=== PATIENT | female | born 1945 | race Caucasian/White ===

== ENCOUNTER 2019-05-25 16:32 | Emergency (ER) | payer MEDICARE, BC, SELFPAY ==
--- NOTE | ~2019-05-25 | XR_ITS ---
EXAMINATION: XR hand LT min 3V DATE: 05/25/2019 17:32 INDICATION: Pain at the fifth metacarpal post fall TECHNIQUE: Posteroanterior, oblique and lateral views of the left hand were obtained. COMPARISON: None. FINDINGS: One cortical width dorsal displacement and mild palmar angulation of Articular spiral fracture of the left fifth metacarpal diaphysis. Alignment is otherwise normal. No o ther acute fractures identified. Joint spaces are relatively preserved. IMPRESSION: 1. Minimally displaced and minimally angulated spiral fracture of the left fifth metacarpal diaphysis . Reviewed, dictated and finalized at location A. RPILLAR OPERATOR IMPRESSION: 1. Minimally displaced and minimally angulated spiral fracture of the left fift h metacarpal diaphysis.
[2019-05-25 16:37] VITALS: BP 133/108; PULSE 79; RESP 18; TEMP 36.6; O2SAT 98
--- NOTE | 2019-05-25 18:38 | ED.FALL ---
HPI - Fall General Chief Complaint: Fall Stated Complaint: fall/right hand pain Time Seen by Provider: 05/25/19 16:43 Source: patient Mode of arrival: ambulatory Limitations: no limitations History of Present Illness HPI Narrative: Patient presents with CC of swelling to left cheek, left 5th digit, and right knee after missing a small step transition and falling. Patient denies LOC. She denies headache, nausea, vomiting, changes in vision or hearing, or bleeding from her orifices. She denies being on blood thinners. Patient states she was able to get up and ambulate without issue. She denies any neurological deficits. Patient reports decreased ROM due to swelling and discomfort to 5th digit. Related Data Allergies Allergy/AdvReac Type Severity Reaction Status Date / Time iodine Allergy Unknown Verified 06/25/13 07:36 Review of Systems Review of Systems: Narrative: CONSTITUTIONAL: Denies fever, chills, or sweats. EYES: Denies visual changes, redness, or discharge. ENT: Denies rhinorrhea, congestion, sore throat, or otalgia. CARDIOVASCULAR: Denies chest pain, palpitations, or edema. RESPIRATORY: Denies cough or dyspnea. GASTROINTESTINAL: Denies abdominal pain, nausea, vomiting, or diarrhea. GENITOURINARY: Denies dysuria or hematuria. SKIN: Denies rash or itching. MUSCULOSKELETAL: Reports joint pain denies back pain, or myalgia. NEUROLOGIC: Denies headache, numbness, dizziness, or weakness. PSYCHIATRIC: Denies anxiety or depression. PMFSH Social History Social History Gender identity (if verbalized by the patient): Female Exam Narrative: Exam Narrative: Exam Narrative: GENERAL: Well-appearing, well-nourished, and in no acute distress. HEAD: No hematoma. No divets palpated. Mild swelling to left check. mild tenderness to palaption. EYES: PERRLA and EOMI. ENT: Nares clear, no rhinorrhea or epistaxis. Mucous membranes moist. Oropharynx without tonsillar hypertrophy exudate or other lesions. Bilateral TMs pearly constantino nonbulging NECK: Supple. No adenopathy or masses. No JVD noted CHEST: Clear to auscultation. No respiratory distress. No wheezes rales or rhonchi HEART: Regular rate and rhythm. Normal peripheral pulses. EXTREMITIES: Swelling and ecchymosis noted to distal left fifth digit. Abrasion noted to the anterior aspect of right knee without bony tenderness or loss of range of motion. SKIN: Abrasion and ecchymosis as noted in extremity exam. Warm, dry, no rash. NEURO: No focal deficits. Alert and oriented x3. PSYCH: Normal mood and affect. Course Vital Signs Vital signs: Vital Signs Temperature 97.9 F 05/25/19 16:37 Pulse Rate 79 05/25/19 16:37 Respiratory Rate 18 05/25/19 16:37 Blood Pressure 133/108 H 05/25/19 16:37 Pulse Oximetry 98 05/25/19 16:37 Temperature 97.9 F 05/25/19 16:37 Pulse Rate 78 05/25/19 18:59 Respiratory Rate 16 05/25/19 18:59 Blood Pressure 118/75 05/25/19 18:59 Pulse Oximetry 100 05/25/19 18:59 Procedures Orthopedic Splinting/Casting Injury #1: Side: left Upper Extremity Injury Location: finger (Fifth digit) Upper Extremity Immobilizer: finger (other) Pre-Formed: metal foam finger splint Pre-Procedure Neuro Vascular Exam: normal Post-Procedure Neuro Vascular Exam: normal MDM - Fall MDM Narrative Medical decision making narrative: Patient refused CT imaging of her head and maxillofacial bones. Patient denies being on blood thinners. Patient denies x-ray imaging of her knees. Patient denies any other areas of discomfort and is only agreeable to x-ray imaging of her left hand. Informed patient of fracture to left fifth digit. Patient agreement with splinting and will follow-up with hand specialist. Patient would like to be referred to Dr. Damian as she has seen him in the past. Patient denies any other questions or concerns. Patient denies any additional areas of concern that she would like evaluated prior to
[2019-05-25 18:59] VITALS: BP 118/75; PULSE 78; RESP 16; O2SAT 100
--- NOTE | 2019-05-29 10:21 | PC.NURSE ---
LATE ENTRY This note is being entered to document information to the patient's record. The following information was omitted on [05/25/2019], by [effie]. Verbal order per YOMI Hernandez for metal finger splint, splint placed prior to departure.
== END 2019-05-25 19:00 | disposition home or self-care (01) ==
PROVIDERS: Emergency Provider Emergency Medicine; PCP Internal Medicine
DX: S62.397A Other fracture of fifth metacarpal bone, left hand, initial encounter for closed fracture (principal); W10.9XXA Fall (on) (from) unspecified stairs and steps, initial encounter
CPT/HCPCS: 29130; 73130; 99284

== ENCOUNTER 2019-07-27 19:30 | Emergency (ER) | payer MEDICARE, BC, SELFPAY ==
--- NOTE | ~2019-07-27 | CT_ITS ---
EXAMINATION: CT brain wo con DATE: 07/27/2019 20:48 INDICATION: Status post fall. Head injury. TECHNIQUE: Computed tomography (CT) of the head was performed without intravenous contrast. The dose- length product was 529.67 mGy-cm. The mA was adjusted according to patient size. Iterative reconstruc tion technique was employed. COMPARISON: None FINDINGS: No acute intracranial hemorrhage, infarction, mass or mass effect. Mild atrophy. There are scattered mild periventricular and subcortical white matter changes, most likely related to small ves brenda ischemic disease (microangiopathy). Basilar cisterns are patent. Normal constantino-white differentiatio n. Paranasal sinuses and mastoids are pneumatized. No depressed skull fractures. IMPRESSION: 1. No acute intracranial abnormality. 2: Chronic age-related findings. Reviewed, dictated and finalized at location A.
--- NOTE | ~2019-07-27 | XR_ITS ---
XR shoulder LT min 2V, XR humerus LT 07/27/2019 21:01 Indication: Left shoulder pain after fall. Limited range of motion. Procedure: 4 views left shoulder and 2 views left humerus Comparison: No prior studies for comparison. Findings: There is a comminuted left humeral head/neck fracture with pseudosubluxation inferiorly. Ac romioclavicular joint intact. No other fracture identified. Impression: 1: Mildly displaced, comminuted fracture left humeral neck/head with inferior pseudosubluxation. Reviewed, dictated and finalized at location A. Impression: 1: Mildly displaced, comminuted fracture left humeral neck/head with inferior p seudosubluxation. Impression: 1: Mildly displaced, comminuted fracture left humeral neck/head with inferior p seudosubluxation.
--- NOTE | ~2019-07-27 | CT_ITS ---
EXAMINATION: CT cervical spine wo con DATE: 07/27/2019 20:48 INDICATION: Status post fall. Neck pain. TECHNIQUE: Computed tomography (CT) of the cervical spine was performed without intravenous contrast. The dose-length product was 183 mGy-cm. Automated exposure control and iterative reconstruction technique were employed. COMPARISON: None FINDINGS: No acute fracture, subluxation or dislocation. Odontoid process within normal limits. Crani overtebral junction is normal. There are mild degenerative changes at multiple levels characterized b y mild disc narrowing at C4-5, C5-6 and C6-7. There is mild multilevel uncinate and facet hypertrophy . Lung apices are normal. No significant paraspinal soft tissue abnormality. Lung apices are normal. IMPRESSION: 1. No acute abnormality of the cervical spine. Reviewed, dictated and finalized at location A.
[2019-07-27 19:33] VITALS: BP 147/69; PULSE 86; RESP 16; TEMP 36.4; O2SAT 95
--- NOTE | 2019-07-27 20:30 | ED.UPPEXIN ---
HPI - Extremity Injury (Upper) General Chief Complaint: Extremity Injury, Upper Stated Complaint: fall, hit head, left arm injury Time Seen by Provider: 07/27/19 20:20 Source: patient Mode of arrival: ambulatory Limitations: no limitations History of Present Illness HPI narrative: Patient is a 73-year-old female who presents to the emergency department with complaint of left upper arm/shoulder injury. Patient states she was going out her door to her patio and tripped on the door frame. Patient landed on her left upper arm. She did strike the right side of her forehead on the iron railing around the patio. Patient denies loss of consciousness or headache. She does report some stiffness in her neck. She complains of pain to the left upper arm and shoulder that is worse with any attempted movement. She placed a sling and cold pack prior to arrival. Injury occurred between 630 and 7 PM. Patient reports minor abrasions to the right hand and 1 of her knees. Patient does not take any blood thinners. complaint: injury to: left, shoulder and arm Onset (ago): hour(s) Other injuries: head Place: home Relieving factors: cold therapy and immobilization Exacerbating factors: movement of extremity Associated symptoms: neck pain (stiff) Treatments prior to arrival: cold therapy and other (Sling) Related Data Allergies Allergy/AdvReac Type Severity Reaction Status Date / Time iodine Allergy Severe Swelling Verified 07/27/19 19:44 of Lip/Tongue/Throat Sulfa (Sulfonamide Allergy Unknown Verified 07/27/19 19:44 Antibiotics) Review of Systems Review of Systems: All systems reviewed & are unremarkable except as noted in HPI and below PMFSH Past Medical History Medical History (Updated 07/27/19 @ 23:16 by Samantha Orellana MD) Diabetes mellitus Dyslipidemia Hypertension Hypothyroidism Surgical History Surgical History (Updated 07/27/19 @ 20:34 by Samantha Orellana MD) History of cholecystectomy History of colon resection History of esophagogastroduodenoscopy (EGD) History of hysterectomy History of tonsillectomy Social History Social History (Updated 07/27/19 @ 20:35 by Samantha Orellana MD) Smoking status: Never smoker Gender identity (if verbalized by the patient): Female Exam Const: General: cooperative, no acute distress and alert Nutritional Appearance: well nourished Orientation/consciousness: patient oriented x3 Limitations: no limitations HENMT: Head images: 1. Contusion/ecchymosis with mild to moderate swelling Eyes: Conjunctivae: conjunctivae normal Pupils: Equal, round and reactive pupils present EOM: EOMs intact bilaterally Resp: Effort & Inspection: normal respiratory effort Auscultation: clear to auscultation bilaterally Cardio: Rate: regular rate Rhythm: regular rhythm GI: GI Palp: Yes Soft to palpation and No Tenderness to palpation present (GI) Auscultation: normal bowel sounds Back/Spine/Pelvis: Cervical Spine: cervical ROM normal, cervical muscular tenderness and Cervical spine tenderness Skin: General skin exam: normal color Neuro: General: patient oriented x3 Cognition (Neuro): normal cognition Speech: normal speech Extrem: General: normal to inspection, full ROM and no clubbing, cyanosis or edema Shoulder/upper arm images: 1. Diffuse tenderness without overt deformity Psych: Mental Status: mental status grossly normal Affect: normal affect Attitude: cooperative Course Course Emergency Course: Patient reports improvement in pain after acetaminophen. Patient given hydrocodone prior to discharge and will be prescribed pain medication to take on an as-needed basis. Patient placed in shoulder immobilizer and will be referred to orthopedic surgery for follow-up care. Vital Signs Vital signs: Vital Signs Temperature 97.6 F 07/27/19 19:33 Pulse Rate 86 07/27/19 19:33 Respiratory Rate 16 07/27/19 19:33 Blood Pressure 147/69 H
[2019-07-27 23:19] VITALS: BP 118/73; PULSE 95; RESP 18; O2SAT 96
== END 2019-07-27 23:35 | disposition home or self-care (01) ==
PROVIDERS: Emergency Provider Emergency Medicine; PCP Internal Medicine
DX: S42.292A Other displaced fracture of upper end of left humerus, initial encounter for closed fracture (principal); S09.90XA Unspecified injury of head, initial encounter; S16.1XXA Strain of muscle, fascia and tendon at neck level, initial encounter; E11.9 Type 2 diabetes mellitus without complications; E78.5 Hyperlipidemia, unspecified; I10 Essential (primary) hypertension; E03.9 Hypothyroidism, unspecified; W01.198A Fall on same level from slipping, tripping and stumbling with subsequent striking against other object, initial encounter
CPT/HCPCS: 70450; 72125; 73030; 73060; 96365; 99284; A9270; J0131

== ENCOUNTER 2019-07-30 17:16 | Outpatient (CLI) | payer MEDICARE, BC, SELFPAY ==
--- NOTE | ~2019-07-30 | CT_ITS ---
EXAMINATION: CT shoulder LT wo con EXAM DATE: 07/30/2019 17:48 INDICATION: Left shoulder pain, fracture. TECHNIQUE: Spiral CT left shoulder was performed without contrast. Axial, coronal and sagittal imag es were reviewed. The dose-length product (DLP) for this examination was 459.33 mGy-cm. The exposur e was tailored according to patient size (auto mA exposure control), and iterative reconstruction ( IR) was used as additional dose reduction technique. Correlation is made to x-ray same date. FINDINGS: There is acute comminuted fracture of the left humeral head/neck with distraction of fractu re fragments. There is inferior subluxation of the humeral head, fragments, and probably some impacti on into the inferior aspect of glenoid rim, but the glenoid appears intact, no other fractures identi fied. IMPRESSION: Acute comminuted inferiorly subluxed left humeral head/neck fracture, probably some impac tion into the glenoid rim. Reviewed, dictated and finalized at location A. IMPRESSION: Acute comminuted inferiorly subluxed left humeral head/neck fractur e, probably some impaction into the glenoid rim.
== END 2019-07-30 17:17 | disposition home or self-care (01) ==
PROVIDERS: PCP Internal Medicine; Visit Provider Orthopaedic Surgery
DX: M25.512 Pain in left shoulder (principal); S42.295A Other nondisplaced fracture of upper end of left humerus, initial encounter for closed fracture
CPT/HCPCS: 73200

== ENCOUNTER 2021-12-09 19:04 | Emergency (ER) | payer MEDICARE, BC, SELFPAY ==
[2021-12-09 19:13] VITALS: BP 140/59; PULSE 72; RESP 18; TEMP 36.4; O2SAT 98
--- NOTE | 2021-12-09 19:58 | ED.WOUNDLAC ---
HPI - Wound/Laceration General Chief Complaint: Wound/Laceration Stated Complaint: left leg non healing wound Time Seen by Provider: 12/09/21 19:45 Source: patient, RN notes reviewed and old records reviewed Mode of arrival: ambulatory Limitations: no limitations History of Present Illness HPI narrative: 76 year old female who presents to express care with complaints of 3cm X 5cm red area to the back of her left posterior knee, with irregular shaped red purplish area which has grown in size with complaints of itching. Patient concerned due to history of cellulitis. Patient also has 1cm circular area to the right lower leg medially that is from a witnessed bug bite. Patient denies any fevers, chills or sweats or any signs of illness. Onset (ago): day(s) (3 days increased size) Location: other (bilateral lower extremities) Related Data Home Medications Medication Instructions Recorded Confirmed cyanocobalamin (vitamin B-12) mcg 12/09/21 1,000 mcg/mL injection solution dapagliflozin 10 mg tablet mg 12/09/21 (Farxiga) dulaglutide 1.5 mg/0.5 mL mg subcut 12/09/21 subcutaneous pen injector ([facility]) glimepiride 2 mg tablet mg 12/09/21 levothyroxine 75 mcg tablet mcg 12/09/21 lisinopril 5 mg tablet mg 12/09/21 magnesium oxide 400 mg (241.3 mg mg 12/09/21 magnesium) tablet metformin 500 mg tablet,extended mg PO 12/09/21 release 24 hr metoprolol succinate 25 mg mg PO 12/09/21 tablet,extended release 24 hr pravastatin 80 mg tablet mg 12/09/21 Allergies Allergy/AdvReac Type Severity Reaction Status Date / Time iodine Allergy Severe Swelling Verified 12/09/21 19:17 of Lip/Tongue/Throat Sulfa (Sulfonamide Allergy Unknown Verified 12/09/21 19:17 Antibiotics) Review of Systems Review of Systems: CONSTITUTIONAL: Denies fever, chills, or sweats. EYES: Denies visual changes, redness, or discharge. ENT: Denies rhinorrhea, congestion, sore throat, or otalgia. CARDIOVASCULAR: Denies chest pain, palpitations, or edema. RESPIRATORY: Denies cough or dyspnea. GASTROINTESTINAL: Denies abdominal pain, nausea, vomiting, or diarrhea. GENITOURINARY: Denies dysuria or hematuria. SKIN: positive for rash to left posterior knee region and to right lower lateral leg with some itching of tissue and discoloration. MUSCULOSKELETAL: Denies back pain, joint pain, or myalgia. NEUROLOGIC: Denies headache, numbness, or weakness. PSYCHIATRIC: Denies anxiety or depression. All systems reviewed & are unremarkable except as noted in HPI and below PMFSH Past Medical History Medical History Diabetes mellitus Dyslipidemia Hypertension Hypothyroidism Surgical History Surgical History History of cholecystectomy History of colon resection History of esophagogastroduodenoscopy (EGD) History of hysterectomy History of tonsillectomy Social History Social History Smoking status: Never smoker Gender identity (if verbalized by the patient): Female Comments At time of signature, agree with nursing past medical, surgical, social and family history. There is no relevant family history pertinent to the presenting complaint Exam Narrative: GENERAL: Well-appearing, well-nourished, and in no acute distress. HEAD: Normocephalic, atraumatic. EYES: PERRLA and EOMI. ENT: Nares clear, no rhinorrhea or epistaxis. Mucous membranes moist.TM's normal with good light reflex, throat pink with no redness or swelling. NECK: Supple.no lymphadenopathy CHEST: Clear to auscultation. No respiratory distress.SAO2 98% on room air. HEART: Regular rate and rhythm. No murmur heard. Normal peripheral pulses. ABDOMEN: Soft, nontender, nondistended, normal active bowel sounds. EXTREMITIES: Normal range of motion. No edema. SKIN: Warm, dry,1cm raised itchy circular bug bite to
== END 2021-12-09 20:20 | disposition home or self-care (01) ==
PROVIDERS: Emergency Provider Registered Nurse; PCP Internal Medicine
DX: L25.9 Unspecified contact dermatitis, unspecified cause (principal); E11.9 Type 2 diabetes mellitus without complications; E78.5 Hyperlipidemia, unspecified; I10 Essential (primary) hypertension; E03.9 Hypothyroidism, unspecified
CPT/HCPCS: 99213; G0463

== ENCOUNTER 2024-08-02 10:14 | Outpatient (CLI) | payer MEDICARE, BC, SELFPAY ==
--- NOTE | ~2024-08-02 | CT_ITS ---
Non-contrast CT scan of the Abdomen Clinical indication: Disorder of adrenal gland Technique: 2.5 mm axial scans were obtained through the abdomen without intravenous or oral contrast . Dose reduction technique was used on this scan by utilizing automated exposure control and iterativ e reconstruction technique. The dose-length product (DLP) was 347.86 mGy-cm. Findings: Images through the lung bases reveal no abnormalities. There is no evidence of renal or ureteral calculi. The kidneys and the ureters are nondilated. The liver, spleen, pancreas, and adrenals appear normal. Cholecystectomy clips are present. There is no aortic aneurysm. Visualized bowel loops are unremarkable. No ascites. Impression: No significant abnormality seen. In particular, no distinct abnormality of the adrenal glands is iden tified. Reviewed, dictated and finalized at location . Impression: No significant abnormality seen. In particular, no distinct abnormality of the adrenal glands is identified.
--- OUTSIDE RECORDS SUMMARY | 2024-08-02 10:35 | XMS_ITS | Clinical Summary ---
Author Organization [facility] Address [address] [place] [id number] Care Team Providers Care Wheel Installer Name Role Phone Unavailable Primary Care Provider Unavailabl e Social History Tobacco Use Types Packs/Day Years Used Date Smoking Tobacco: Never Assessed Comments Unknown Sex and Gender Information Value Date Recorded Sex Assigned at Not on file Legal Sex Female 4:11 PM CDT Gender Identity Not on file Sexual Orientation Not on file Plan of Treatment Health Maintenance Due Date Last Done Comments Hepatitis C 1963 DTaP, Tdap and Td Vaccines ( 1 - Tdap) 1965 Pneumococcal Vaccine: 50+ Ye ars (1 of 1 - PCV) 1996 Zoster Vaccines (1 of 2) 1996 Dexa Scan (General) 07/30/2011 RSV Immunization or 60+ Years (1 - 1-dose 75+ series) 2021 COVID-19 Vaccine (2023-2 5 season) 2023 Meningococcal B Vaccine Aged Out No l onger eligible based on patient's age to complete this topic Meningococcal Vaccine Aged Out No hao lisa eligible based on patient's age to complete this topic RSV Immunizations Under 20 Months Aged Out No longer eligible based on patient's age to complete this topic
--- OUTSIDE RECORDS SUMMARY | 2024-08-02 10:35 | XMS_ITS | CONTINUITY OF CARE DOCUMENT ---
Author Name becky, becky Address Unknown Organization [facility] Address [address] [place] [address] Phone [phone] Care Team Providers Care Test Kitchen Home Economist Name Role Phone Tommy MARTINEZ, Brady Unavailable [phone] LUDIN MARTINEZ, LALI Unavailable [phone] LUDIN MARTINEZ, LALI Unavailable [phone] PROBLEMS Condition Status Date Provider Notes Chest pain--cath tortuous cors, 01/2024 active Oswald Mcrae DIABETES MELLITUS active ? Brady Sanders MD HYPOTHYROIDISM active ? Brady Sanders MD HTN ESSENTIAL--echo ef 65%, mild MR, TR, 12/2018 active Brady Sanders MD ARTHRITIS active ? Brady Sanders MD MIGRAINE HEADACHE active ? Brady Sanders MD Shoulder pain active Brady Sanders MD Shortness of breath active Brady Sanders MD Abnormal nuclear stress test active Oswald weber Cardiology examination active Oswald Mcrae Hyperlipidemia active Brady Sanders MD ENCOUNTERS Date Type Provider Location Encounter Diag nosis - In-person encounter Office Visit Brady Sanders MD [facility] Cardiology examination - In-person encounter Office Visit Brady Sanders MD [facility] Chest pain--cath tortuous cors, 01/2024 - In-person encounter Office Visit Brady Sanders MD [facility] Abnormal nuclear stress test - In-person encounter Office Visit Brady Sanders MD [facility] - In-person encounter Office Visit Brady Sanders MD [facility] - In-person encounter Office Visit Brady Sanders MD [facility] Shortness of breath - In-person encounter Office Visit Brady Sanders MD [facility] - In-person encounter Office Visit Brady Sanders MD [facility] Chest pain--cath tortuous cors, 01/2024HTN ESSENTIAL--echo ef 65%, mild MR, TR, 12/2018 - In-person encounter Office Visit Brady Sanders MD [facility] - In-person encounter Office Visit Brady Sanders MD [facility] Shoulder pain - In-person encounter Office Visit Brady Sanders MD [facility] Chest pain--cath tortuous cors, 01/2024 - In-person encounter Office Visit Brady Sanders MD [facility] Hyperlipidemia - In-person encounter Office Visit Brady Sanders MD [facility] DIABETES MELLITUSHYPOTHYROIDISMHTN ESSENTIAL--echo ef 65%, mild MR, TR, 12/2018ARTHRITISMIGRAINE HEADACHEHyperlipidemia VITAL SIGNS Date Observation Value Provider Body Mass Index (Ratio) 33.98 kg/m2 Mohit Sanders MD blood pressure, diastolic -1 mm[Hg] Aleksandra nkLogbroderick blood pressure, systolic 150 mm[Hg] Tamica kLogbroderick pulse rate 61 /min Chantale milton oxygen saturation, oximetry 96 % Chantale Pacheco blood pressure, diastolic 74 mm[Hg] Jose Daniel Pacheco blood pressure, systolic 150 mm[Hg] Da Pacheco blood pressure, cuff size FOLLOQWregular Chantale Pacheco weight E&M 174 [lb_av] Chantale Ortiz s height E&M 60 [in_i] Chantale Ortiz s Body Mass Index (Ratio) 33.78 kg/m2 Mohit Sanders MD blood pressure, diastolic 71 mm[Hg] [facility], systolic 123 mm[Hg] Jaylene [facility] saturation, oximetry 95 % [facility] pulse rate 70 /min [facility] respiratory rate E&M 12 /min [facility] weight E&M 173 [lb_av] [facility] height E&M 60 [in_i] [facility] blood pressure, cuff size regular [facility] Body Mass Index (Ratio) 34.45 kg/m2 Mohit Sanders MD blood pressure, diastolic 77 mm[Hg] Ky samson [place] blood pressure, systolic 149 mm[Hg] Kyl ia [place] pulse rate 99 /min Venua [place] respiratory rate E&M 14 /min Venusamson meeks oxygen saturation, oximetry 95 % [facility] [place] weight E&M 176.4 [lb_av] Kylia Marcelo blood pressure, cuff size regular Ky samson [place] height E&M 60 [in_i] Kylia Marcelo Body Mass Index (Ratio) 33.59 kg/m2 Mohit Sanders MD blood pressure, diastolic 74 mm[Hg] Aleksandra nkLogic blood pressure, systolic 136 mm[Hg] Tamica kLogic blood pressure, cuff size regular [facility], [facility] 74 mm[Hg] Ja freddyet blood pressure, systolic 136 mm[Hg] Pancho martin pulse rate 69 /min Raciel respiratory rate E&M 12 /min Raciel oxygen saturation, oximetry 95 % Raciel weight E&M 172 [lb_av] Raciel height E&M 60 [in_i] Raciel y Body Mass Index (Ratio) 31.87 kg/m2 Mohit Sanders MD blood pressure, diastolic 63 mm[Hg] suad Novak blood pressure, systolic 134 mm[Hg] She annie Novak weight E&M 163.2 [lb_av] Nessa Novak pulse rate 84 /min Nessa Novak respiratory rate E&M 18 /min Nessa Novak oxygen saturation, oximetry 94 % Nessa Novak blood pressure, cuff size regular johnathanketty Novak height E&M 60 [in_i] Nessa Novak Body Mass Index (Ratio) 27.92 kg/m2 Mohit Sanders MD blood pressure, diastolic 66 mm[Hg] Aleksandra nkLogbroderick blood pressure, systolic 104 mm[Hg] Tamica kLog respiratory rate E&M 18 /min Nessa Novak pulse rate 89 /min Nessa Novak blood pressure, diastolic 66 mm[Hg] suad Novak blood pressure, systolic 104 mm[Hg] She anine Novak oxygen saturation, oximetry 97 % Nessa Novak weight E&M 143 [lb_av] Nessa Novak height E&M 60 [in_i] Fannie bedoya Body Mass Index (Ratio) 30.85 kg/m2 Mohit Sanders MD blood pressure, diastolic 73 mm[Hg] Sa ra Baeza blood pressure, systolic 137 mm[Hg] Brigida a Baeza oxygen saturation, oximetry 96 % Jayne Baeza respiratory rate E&M 16 /min Jayne Si ms pulse rate 87 /min Jayne Baeza blood pressure, cuff size regular Sa ra Baeza weight E&M 158 [lb_av] Jayne Baeza height E&M 60 [in_i] Jayne Baeza Body Mass Index (Ratio) 30.07 kg/m2 Mohit Sanders MD blood pressure, diastolic 74 mm[Hg] Li nkLogic blood pressure, systolic 138 mm[Hg] Tamica kLogic oxygen saturation, oximetry 95 % Chastity Sara blood pressure, diastolic 74 mm[Hg] Ch astity Sara blood pressure, systolic 138 mm[Hg] Lorraine stity Sara pulse rate 74 /min Chastity Sara respiratory rate E&M 16 /min Chastit y Sara weight E&M 154 [lb_av] Chastity Sara height E&M 60 [in_i] Chastity Sara Body Mass Index (Ratio) 30.46 kg/m2 Mohit Sanders MD blood pressure, cuff size regular Ke rri Gruenenfelder blood pressure, diastolic 82 mm[Hg] Ke rri Gruenenfelder blood pressure, systolic 142 mm[Hg] Ker ri Gruenenfelder oxygen saturation, oximetry 97 % Yoko Gruenenfelder respiratory rate E&M 16 /min Yoko G ruenenfelder pulse rate 72 /min Yoko Gruenenfe [facility] weight E&M 156 [lb_av] Yoko Obrien [facility] height E&M 60 [in_i] Yoko Obrien [facility] Body Mass Index (Ratio) 30.66 kg/m2 Mohit Sanders MD blood pressure, diastolic 80 mm[Hg] To [facility] blood pressure, systolic 151 mm[Hg] [facility] oxygen saturation, oximetry 93 % [facility] respiratory rate E&M 16 /min [facility] pulse rate 88 /min [facility] weight E&M 157 [lb_av] [facility] height E&M 60 [in_i] [facility] Body Mass Index (Ratio) 32.03 kg/m2 Mohit Sanders MD blood pressure, cuff size regular Cy ruiz Logan blood pressure, diastolic 80 mm[Hg] Cy ruiz Logan blood pressure, systolic 124 mm[Hg] Lizet alex [place] oxygen saturation, oximetry 98 % Deena Logan respiratory rate E&M 16 /min Deenaalex Logan pulse rate 70 /min Deena Harding l weight E&M 164 [lb_av] Deena Gumarobel l height E&M 60 [in_i] Deena Campbel l blood pressure, diastolic 70 mm[Hg] Kr isty Mari blood pressure, systolic 130 mm[Hg] Kri stketty Leakey pulse rate 90 /min Radha Leakey oxygen saturation, oximetry 97 % Radha Leakey respiratory rate E&M 18 /min Radha Leakey blood pressure, cuff size regular Kr isty Leakey Body Mass Index (Ratio) 31.24 kg/m2 Leojosefina youssef Mari height in centimeters E&M 152.40 cm Leonel Guerra height E&M 60 [in_i] Radha Guerra weight in kilograms E&M 72.57 kg Leo Villaltaby weight E&M 160 [lb_av] Radha Guerra blood pressure, diastolic 66 mm[Hg] Jose Snow RN blood pressure, systolic 123 mm[Hg] Madhu Snow RN pulse rate 74 /min Madhu Snow RN oxygen saturation, oximetry 94 % Madhu Snow RN respiratory rate E&M 18 /min Madhu fraser RN weight E&M 171 [lb_av] Madhu Snow RN ALLERGIES Allergy Name Onset Date Reaction Criticality Status IODINE Rash High Criticality active SULFASALAZINE Low Criticality active RESULTS Date Observation Value Provider Reference Range Interpretation Location 0 prothrombin time (patient) 10.9 s [facility] 9.1-12.0 0 international normalized ratio (INR) 1.0 [facility] 0.9-1.2 0 lipoprotein, beta, serum, point, quantitative, calculated 55 mg/dL [facility] 0-99 0 HDL cholesterol, serum 75 mg/dL [facility] >39 0 triglyceride, serum, random 62 mg/dL [facility] 0-149 0 cholesterol, serum 143 mg/dL [facility] 690-267 3497/10/3 0 calcium, serum 9.5 mg/dL [facility] 8.7-10.3 0 carbon dioxide, venous blood 23 mmol/L [facility] 20-29 0 chloride, serum 107 mmol/L [facility] 96-106 High 0 potassium, serum 4.4 mmol/L [facility] 3.5-5.2 0 sodium, serum 143 mmol/L [facility] 227-132 5586/10/3 0 urea nitrogen/creatinin e ratio, serum 17 [facility] 12-28 0 creatinine, serum 1.16 mg/dL [facility] 0.57-1.00 High 0 urea nitrogen, blood 20 mg/dL [facility] 8-27 0 blood glucose, random 62 mg/dL [facility] 70-99 Low 9 basophil count, absolute 0.0 x10E3/uL [facility] 0.0-0.2 9 Eosinophil Absolute Count 0.2 X10E3/UL [facility] 0.0-0.4 9 monocyte count, blood, automated 0.9 X10E3/UL [facility] 0.1-0.9 9 lymphocyte count, blood, automated 1.5 X10E3/UL [facility] 0.7-3.1 9 Absolute Neutrophils 5.1 X10E3/UL [facility] 1.4-7.0 9 basophils as percent of blood leukocytes 1 % [facility] Not Estab. 9 eosinophils as percent of blood leukocytes 3 % [facility] Not Estab. 9 monocytes as percent of blood leukocytes 12 % [facility] Not Estab. 9 lymphocytes as percent of blood leukocytes 20 % [facility] Not Estab. 9 neutrophils as percent of blood leukocytes 64 % [facility] Not Estab. 9 platelet count 253 X10E3/UL [facility] 862-192 8464/10/2 9 red blood cell distribution width 12.5 % [facility] 11.7-15.4 9 mean corpuscular hemoglobin concentration, RBC 32.0 G/DL [facility] 31.5-35.7 9 mean corpuscular hemoglobin, RBC 30.2 pg [facility] 26.6-33.0 9 mean corpuscular volume, RBC 94 fL [facility] 79-97 9 hematocrit, blood 38.8 % [facility] 34.0-46.6 9 hemoglobin, blood 12.4 g/dL [facility] 11.1-15.9 9 erythrocyte (RBC) count 4.11 X10E6/UL [facility] 3.77-5.28 9 leukocyte count, blood 7.8 X10E3/UL [facility] 3.4-10.8 HISTORY OF MEDICATION USE Medication Status Instructions Dates Provider Indications Com ments glimepiride 4 mg tablet active twice daily Oswald Mcrae metoprolol tartrate 50 mg tablet active TAKE 1 TABLET BY MOUTH TWICE DAILY Oswald Mcrae ranolazine 500 mg tablet extended release 12 hr completed TAKE 1 TABLET BY MOUTH TWICE DAILY - Oswald Mcrae prednisone 50 mg tablet completed Take 1 tablet by mouth as directed Day before procedure: one tablet 5pm and one tab at 9pm. Day of procedure: one tab in morning. - Oswald Mcrae famotidine 20 mg tablet completed Take 1 tablet by mouth every twelve hours Take one tab at bedtime the night before the procedure and one tab the morning of the procedure - Oswald Mcrae Benadryl Allergy 25 mg tablet completed Take 2 tablet by mouth as directed Take 1 hour prior to procedure - Oswald Mcrae metoprolol tartrate 25 mg tablet completed TAKE 1 TABLET BY MOUTH TWICE DAILY - Oswald Mcrae Plavix 75 mg tablet completed TAKE 1 TABLET BY MOUTH EVERY DAY - Brady Sanders MD Trulicity 1.5 mg/0.5 mL pen injector active Oswald Mcrae Tresiba U-100 Insulin 100 unit/mL solution completed - Oswald Mcrae lansoprazole 30 mg capsule,delayed release(DR/EC) active Oswald Mcrae metformin 500 mg tablet extended release 24 hr active TAKE 1 TABLET BY MOUTH TWICE DAILY [facility] Far[facility]iga 10 mg tablet completed Take tablet by mouth once a day - Oswald Mcrae glimepiride 2 mg tablet completed - Oswald Clementina metformin 500 mg tablet extended release 24 hr completed Take 1 tablets by mouth twice daily - Raciel Woodall metformin 500 mg tablet extended release 24 hr completed - Oswald Mcrae Farxiga 10 mg tablet active Take one tablet once daily Oswald Mcrae levothyroxine 75 mcg tablet active Oswald Mcrae Benadryl Allergy 25 mg tablet completed Take as needed - Oswald Reali acetaminophen 325 mg tablet completed Take 1 tablet by mouth once a day - Oswald Reali Farxiga 10 mg tablet completed - Oswald Realrachele pravastatin 80 mg tablet active Brady Sanders MD magnesium oxide 400 mg (241.3 mg magnesium) tablet completed - Oswald Fannytia levothyroxine 75 mcg tablet completed - Brady Sanders MD lansoprazole 30 mg capsule,delayed release(DR/EC) completed Take 1 tablet once a day - Oswald Realrachele cyanocobalamin (vitamin B-12) 1,000 mcg tablet completed Take 1 tablet by mouth once a day - Oswald Realrachele Trulicity 0.75 mg/0.5 mL pen injector completed once a week - Oswald Reali magnesium oxide 400 mg magnesium capsule completed Take 1 tablet by mouth once a day - Radha Guerra Onglyza 5 mg tablet completed Take 1 tablet once a day - Deena HEARD DM 100-10 MG/5ML ORAL LIQUID completed as needed - Yoko Carroll Mucus Relief 400 mg tablet completed as needed - Oswald Josezai biotin 5 mg capsule completed once a day - Oswald Mcrae Ocuvite Lutein and Zeaxanthin 60 mg-13.5 mg- 15 mg-2 mg-6 mg capsule active once a day Yoko Carroll FIORICET 50-325-40 MG TABS completed as needed - Oswald Mcrae Zomig ZMT 5 mg tablet,disintegra ting completed as needed - Madhu Snow RN FLONASE 50 MCG/ACT NASAL SUSPENSION completed - Radha Guerra ASPIRIN 81 MG ORAL TABLET active 1 tablet once a day Madhu Snow RN metoprolol succinate 25 mg tablet extended release 24 hr completed 1 tablet once a day - Oswald Mcrae lisinopril 5 mg tablet active 1 tablet once a day Madhu Snow RN pravastatin 40 mg tablet completed 2 tablet once a day - Madhu Snow RN glimepiride 4 mg tablet completed 1 tablet twice a day - Oswald Mcrae metformin 1,000 mg tablet completed 1 tablet twice a day - Oswald Mcrae LEVOTHROID 75 MCG TABS completed 1 tablet once a day - Oswald Mcrae SOCIAL HISTORY Date Observation Value Provider drug use no Oswald Mcrae alcohol use no Oswald Mcrae smoking status Never smoker Oswald Mcrae drug use no Oswald Mcrae alcohol use no Oswald Mcrae smoking status Never smoker Oswald Mcrae drug use no Oswald Mcrae alcohol use no Oswald Mcrae smoking status Never smoker Oswald Mcrae drug use no Oswald Mcrae alcohol use no Oswald Mcrae smoking status Never smoker Oswald Mcrae social history E&M Marital Statu s: Smoking History: P atient has never smoked. Oswald Garciagrant smoking status Never smoker Nessa Novak social history reviewed E&M revi ewed - no changes required Oswald Josegrant social history E&M Marital Statu s: Smoking History: P miki has never smoked. Oswald Escobedokylegrant caffeine use, averag e drinks per day yes Fannie Kemp smoking status Never smoker Fannie capone social history reviewed E&M revi ewed - no changes required Oswald Josegrant social history reviewed E&M revi ewed - no changes required Oswald Mcrae social history E&M Marital Statu s: Smoking History: P miki has never smoked. Oswald Mcrae social history reviewed E&M revi ewed - no changes required Oswald Mcrae caffeine use, averag e drinks per day yes Chastity Sara smoking status Never smoker Chastity Hogu e drug use no Fran Tim alcohol use no Fran Tim social history E&M Marital Statu s: Smoking History: P miki has never smoked. Fran Tim social history reviewed E&M revi ewed - no changes required Fran Tim caffeine use, averag e drinks per day yes Yoko Carroll smoking status Never smoker Yoko em social history E&M Marital Statu s: Smoking History: P miki has never smoked. Fran Tim social history reviewed E&M revi ewed - no changes required Fran Tim caffeine use, averag e drinks per day yes Tonsha Larson smoking status Never smoker Tonsha Larson social history E&M Marital Statu s: Smoking History: P miki has never smoked. Brady Sanders MD social history reviewed E&M revi ewed - no changes required Brady Sanders MD caffeine use, averag e drinks per day yes Deena Logan smoking status Never smoker Deena grove number of grandchildren Brady Sanders MD T alicja Sanders MD drug use no Brady Sanders MD alcohol use no Brady Sanders MD social history E&M Marital Statu s: Smoking History: Brady Sanders MD social history reviewed E&M revi ewed - no changes required Brady Sanders MD caffeine use, averag e drinks per day yes Radha Mari smoking status Never smoker Brady Sanders MD social history E&M Marital Status: Luther bender Brady Sanders MD drug use none Brady Sanders MD social history reviewed E&M reviewed Brady Sanders MD caffeine use, averag e drinks per day yes Madhu Snow RN alcohol use, average drinks per day socially Madhu Snow RN smoking status Non-Smoker Madhu Snow RN MENTAL STATUS Date Observation Value Provider assessment of judgme nt and insight E&M Alert and oriented to time, place and person. Mood and affect are normal. Madhu Snow RN INSURANCE PROVIDERS Payer name Policy type / Coverage type [employer] party [place] B Medicare [id number] [facility] [address] [id number] 1 ADVANCE DIRECTIVES Name Date DISCUSSED - NO DECISION MADE TREATMENT PLAN Date Name Performer [id number],Oswald Milton i [id number],Oswald Milton i [id number],Oswald Milton i [id number],Oswald Milton i [id number],Oswald Milton i [id number],S, Oswald medza i [id number],S, Oswald medza i [id number],S, Oswald medza i [id number],W, Oswald medza i [id number],S, Oswald medza i [id number],S, Oswald medza i [id number],S, Oswald medza i [id number],S, Oswald medza i [id number],S, [facility] [id number],S, [facility] [id number],S, [facility] [id number],S, Oswald medza i [id number],S, Oswald medza i [id number],S, [facility]ald [facility] [id number],S, Oswald kyleza i [id number],S, Oswald kyleza i Cardiology: T he following medications were removed from the medication list: Tresiba U-100 Insulin 100 Unit/ml Solution (Insulin degludec) Glimepiride 2 Mg Tablet (Glimepiride) Her updated medication list for this problem includes: Glimepiride 4 Mg Tablet (Glimepiride) ..... Twice daily Trulicity 1.5 Mg/0.5 Ml Pen Injector (Dulaglutide) Metformin 500 Mg Tablet Extended Release 24 Hr (Metformin) ..... Take 1 tablet by mouth twice daily Farxiga 10 Mg Tablet (Dapagliflozin propanediol) ..... Take one tablet once daily Lisinopril 5 Mg Tablet (Lisinopril) ..... 1 tablet once a day Brady Sanders MD Cardiology:This visi t has been a part of the consistent, comprehensive, and ongoing management of the chronic medical condition(s) listed above for the patient. Her updated medication list for this problem includes: Metoprolol Tartrate 50 Mg Tablet (Metoprolol tartrate) ..... Take 1 tablet by mouth twice daily Lisinopril 5 Mg Tablet (Lisinopril) ..... 1 tablet once a day & #13;BP today: 150/74 P rior BP: 123/71 (02/28/2024) Labs Reviewed: C reat: 1.16 (01/25/2024) C hol: 143 (01/25/2024) HDL: 75 (01/25/2024) LDL: 55 (01/25/2024) T (01/25/2024) Brady Sanders MD Cardiology: H er updated medication list for this problem includes: Pravastatin 80 Mg Tablet (Pravastatin) Brady Sanders MD Cardiology: H er updated medication list for this problem includes: Metoprolol Tartrate 50 Mg Tablet (Metoprolol tartrate) ..... Take 1 tablet by mouth twice daily Lisinopril 5 Mg Tablet (Lisinopril) ..... 1 tablet once a day Brady Sanders MD Cardiology Brady Sanders MD Cardiology: H er updated medication list for this problem includes: Metoprolol Tartrate 50 Mg Tablet (Metoprolol tartrate) ..... Take 1 tablet by mouth twice daily Lisinopril 5 Mg Tablet (Lisinopril) ..... 1 tablet once a day Brady Sanders MD Cardiology:This visi t has been a part of the consistent, comprehensive, and ongoing management of the chronic medical condition(s) listed above for the patient. The following medications were removed from the medication list: Metoprolol Tartrate 25 Mg Tablet (Metoprolol tartrate) ..... Take 1 tablet by mouth twice daily Her updated medication list for this problem includes: Metoprolol Tartrate 50 Mg Tablet (Metoprolol tartrate) ..... Take 1 tablet by mouth twice daily Lisinopril 5 Mg Tablet (Lisinopril) ..... 1 tablet once a day Brady Sanders MD Cardiology: H er updated medication list for this problem includes: Pravastatin 80 Mg Tablet (Pravastatin) Oswald Realrachele Cardiology: H er updated medication list for this problem includes: Levothyroxine 75 Mcg Tablet (Levothyroxine) Oswald Realrachele Cardiology: T he following medications were removed from the medication list: Metoprolol Tartrate 25 Mg Tablet (Metoprolol tartrate) ..... Take 1 tablet by mouth twice daily Her updated medication list for this problem includes: Metoprolol Tartrate 50 Mg Tablet (Metoprolol tartrate) ..... Take 1 tablet by mouth twice daily Lisinopril 5 Mg Tablet (Lisinopril) ..... 1 tablet once a day Oswald Realrachele Cardiology: H er updated medication list for this problem includes: Trulicity 1.5 Mg/0.5 Ml Pen Injector (Dulaglutide) Tresiba U-100 Insulin 100 Unit/ml Solution (Insulin degludec) Metformin 500 Mg Tablet Extended Release 24 Hr (Metformin) ..... Take 1 tablet by mouth twice daily Glimepiride 2 Mg Tablet (Glimepiride) Farxiga 10 Mg Tablet (Dapagliflozin propanediol) ..... Take one tablet once daily Lisinopril 5 Mg Tablet (Lisinopril) ..... 1 tablet once a day Oswald Realrachele Cardiology: T he following medications were removed from the medication list: Metoprolol Tartrate 25 Mg Tablet (Metoprolol tartrate) ..... Take 1 tablet by mouth twice daily Her updated medication list for this problem includes: Metoprolol Tartrate 50 Mg Tablet (Metoprolol tartrate) ..... Take 1 tablet by mouth twice daily Ranolazine 500 Mg Tablet Extended Release 12 Hr (Ranolazine) ..... Take 1 tablet by mouth twice daily Lisinopril 5 Mg Tablet (Lisinopril) ..... 1 tablet once a day [facility] Card[facility]: T he following medications were removed from the medication list: Metoprolol Tartrate 25 Mg Tablet (Metoprolol tartrate) ..... Take 1 tablet by mouth twice daily Her updated medication list for this problem includes: Metoprolol Tartrate 50 Mg Tablet (Metoprolol tartrate) ..... Take 1 tablet by mouth twice daily Lisinopril 5 Mg Tablet (Lisinopril) ..... 1 tablet once a day [facility] Cardiology: O rders: B ASIC METABOLIC PANEL W/EGFR (85622) C BC (INCLUDES DIFF/PLT) (6399) L IPID PANEL (7600) P ROTHROMBIN TIME WITH INR (8847) Her updated medication list for this problem includes: Levothyroxine 75 Mcg Tablet (Levothyroxine) [facility] Cardiology: O rders: B ASIC METABOLIC PANEL W/EGFR (98529) C BC (INCLUDES DIFF/PLT) (6399) L IPID PANEL (7600) P ROTHROMBIN TIME WITH INR (8847) Her updated medication list for this problem includes: Pravastatin 80 Mg Tablet (Pravastatin) [facility] Cardiology: O rders: B ASIC METABOLIC PANEL W/EGFR (55666) C BC (INCLUDES DIFF/PLT) (6399) L IPID PANEL (7600) P ROTHROMBIN TIME WITH INR (8847) The following medications were removed from the medication list: Metoprolol Succinate 25 Mg Tablet Extended Release 24 Hr (Metoprolol succinate) ..... 1 tablet once a day Her updated medication list for this problem includes: Metoprolol Tartrate 25 Mg Tablet (Metoprolol tartrate) ..... Take 1 tablet by mouth twice daily Lisinopril 5 Mg Tablet (Lisinopril) ..... 1 tablet once a day [facility] Cardiology: O rders: B ASIC METABOLIC PANEL W/EGFR (50558) C BC (INCLUDES DIFF/PLT) (6399) L IPID PANEL (7600) P ROTHROMBIN TIME WITH INR (8847) Her updated medication list for this problem includes: Trulicity 1.5 Mg/0.5 Ml Pen Injector (Dulaglutide) Tresiba U-100 Insulin 100 Unit/ml Solution (Insulin degludec) Metformin 500 Mg Tablet Extended Release 24 Hr (Metformin) ..... Take 1 tablet by mouth twice daily Glimepiride 2 Mg Tablet (Glimepiride) Farxiga 10 Mg Tablet (Dapagliflozin propanediol) ..... Take one tablet once daily Lisinopril 5 Mg Tablet (Lisinopril) ..... 1 tablet once a day Oswald Realrachele Cardiology: O rders: L T HRT CATH (61939) B ASIC METABOLIC PANEL W/EGFR (98356) C BC (INCLUDES DIFF/PLT) (6399) L IPID PANEL (7600) P ROTHROMBIN TIME WITH INR (8847) The following medications were removed from the medication list: Metoprolol Succinate 25 Mg Tablet Extended Release 24 Hr (Metoprolol succinate) ..... 1 tablet once a day Her updated medication list for this problem includes: Metoprolol Tartrate 25 Mg Tablet (Metoprolol tartrate) ..... Take 1 tablet by mouth twice daily Plavix 75 Mg Tablet (Clopidogrel) ..... Take 1 tablet by mouth every day Lisinopril 5 Mg Tablet (Lisinopril) ..... 1 tablet once a day Oswaldfabio Garciagrant Cardiology: O rders: L T HRT CATH (71915) B ASIC METABOLIC PANEL W/EGFR (23044) C BC (INCLUDES DIFF/PLT) (6399) L IPID PANEL (7600) P ROTHROMBIN TIME WITH INR (8847) The following medications were removed from the medication list: Metoprolol Succinate 25 Mg Tablet Extended Release 24 Hr (Metoprolol succinate) ..... 1 tablet once a day Her updated medication list for this problem includes: Metoprolol Tartrate 25 Mg Tablet (Metoprolol tartrate) ..... Take 1 tablet by mouth twice daily Lisinopril 5 Mg Tablet (Lisinopril) ..... 1 tablet once a day Oswald Farhanrachele Cardiology: O rders: L T HRT CATH (72415) B ASIC METABOLIC PANEL W/EGFR (73022) C BC (INCLUDES DIFF/PLT) (0499) L IPID PANEL (2180) P ROTHROMBIN TIME WITH INR (8847) [facility]: B P today: 136/74 P rior BP: 134/63 (11/22/2022) Her updated medication list for this problem includes: Lisinopril 5 Mg Tablet (Lisinopril) ..... 1 tablet once a day Metoprolol Succinate 25 Mg Tablet Extended Release 24 Hr (Metoprolol succinate) ..... 1 tablet once a day [facility]: H er updated medication list for this problem includes: Trulicity 1.5 Mg/0.5 Ml Pen Injector (Dulaglutide) Tresiba U-100 Insulin 100 Unit/ml Solution (Insulin degludec) Metformin 500 Mg Tablet Extended Release 24 Hr (Metformin) ..... Take 1 tablet by mouth twice daily Glimepiride 2 Mg Tablet (Glimepiride) Farxiga 10 Mg Tablet (Dapagliflozin propanediol) ..... Take one tablet once daily Lisinopril 5 Mg Tablet (Lisinopril) ..... 1 tablet once a day [facility]: H er updated medication list for this problem includes: Pravastatin 80 Mg Tablet (Pravastatin) [facility]: H er updated medication list for this problem includes: Levothyroxine 75 Mcg Tablet (Levothyroxine) [facility] Oswald Ahmedzai [facility] Oswald Ahmedzai [facility] Oswald Ahmedzai [facility] Oswald Ahmedzai [facility] Oswald Ahmedzai [facility] Oswald Ahmedzai [facility] Oswald Ahmedzai [facility] Oswald Ahmedzai [facility] Ahmedzai [facility] Ahmedzai [facility] Ahmedzai [facility] Ahmedzai [facility] Ahmedzai Cardiology Follow up Brady brady MD Cardiology Follow up Brady brady MD Cardiology Follow up : H er updated medication list for this problem includes: Pravastatin Sodium 40 Mg Oral Tablet (Pravastatin sodium) ..... Two tabs daily Fran Tim Cardiology Follow up : B P today: 142/82 P rior BP: 151/80 (12/10/2019) Fran Tim Cardiology Follow up : P er PCP Her updated medication list for this problem includes: Trulicity 0.75 Mg/0.5ml Subcutaneous Solution Pen-injector (Dulaglutide) ..... Once weekly Onglyza 5 Mg Oral Tablet (Saxagliptin hcl) ..... Take 1 tab daily Metformin Hcl 1000 Mg Oral Tablet (Metformin hcl) ..... One tab twice daily Glimepiride 4 Mg Oral Tablet (Glimepiride) ..... One tab twice daily Lisinopril 5 Mg Oral Tablet (Lisinopril) ..... One tab. daily Aspirin 81 Mg Oral Tablet (Aspirin) ..... One tab. daily Fran Tim Cardiology: B P today: 151/80 P rior BP: 124/80 (02/06/2019) Fran Tim Cardiology:Per PCP Fran Tim Cardiology:Intermittent. Last ec ho was 2019. Fran Emty Cardiology follow up Brady brady MD Cardiology follow up Brady brady MD Cardiology follow up Brady brady MD Cardiology follow up Brady brady MD Cardiology follow up Brayd brady MD Cardiology Brady Sanders MD Cardiology Brady Sanders MD Cardiology Brady Sanders MD Cardiology: B P today: 130/70 P rior BP: 123/66 (02/15/2011) Brady Sanders MD Cardiology:Will check a stress c ardiolite and an echo. Brady Sanders MD post cath : H er updated medication list for this problem includes: Lisinopril 5 Mg Tabs (Lisinopril) ..... One tab. daily Metoprolol Succinate 25 Mg Tb24 (Metoprolol succinate) ..... One tab. daily Aspirin 81 Mg Tabs (Aspirin) ..... One tab. daily BP today: 123/66 Brady Sanders MD post cath : H er updated medication list for this problem includes: Metoprolol Succinate 25 Mg Tb24 (Metoprolol succinate) ..... One tab. daily Aspirin 81 Mg Tabs (Aspirin) ..... One tab. daily Zomig Zmt 5 Mg Tbdp (Zolmitriptan) ..... As needed for migraines Fioricet 50-325-40 Mg Tabs ([id number]) ..... As needed for migraines H eadache diary reviewed. Brady Sanders MD post cath : H er updated medication list for this problem includes: Metformin Hcl 1000 Mg Tabs (Metformin hcl) ..... One tab twice daily Glimepiride 4 Mg Tabs (Glimepiride) ..... One tab twice daily Lisinopril 5 Mg Tabs (Lisinopril) ..... One tab. daily Aspirin 81 Mg Tabs (Aspirin) ..... One tab. daily BP today: 123/66 Prior BP: / () Brady Sanders MD post cath : H er updated medication list for this problem includes: Lisinopril 5 Mg Tabs (Lisinopril) ..... One tab. daily Metoprolol Succinate 25 Mg Tb24 (Metoprolol succinate) ..... One tab. daily Aspirin 81 Mg Tabs (Aspirin) ..... One tab. daily BP today: 123/66 Prior BP: / () C ardiac Cath: Normal coronary arteries except for tortuosity in the left anterior descending and circumflex. Normal left ventricular systolic function. Continue aggressive risk factor modification, add a beta-vinod. - [facility] (01/12/2011) Brady Sanders MD Date Name PROTHROMBIN TIME WIT H INR LIPID PANEL CBC (INCLUDES DIFF/P LT) BASIC METABOLIC PANE L W/EGFR LT HRT CATH Stress Regadenoson Complete Echo Complete Echo Stress Exercise Card iolite HISTORY OF PROCEDURES Procedure Date Procedure Name Provider Procedure Notes S tatus Complex e/m visit add on Brady Sanders MD completed EKG Brady Sanders MD completed Complex e/m visit add on Brady Sanders MD completed Complex e/m visit add on Brady Sanders MD completed EKG Brady Sanders MD completed EKG Brady Sanders MD completed EKG Brady Sanders MD completed Cardiolite, 2 units Brady Sanders MD completed SPECT Images Brady Sanders MD complet ed Stress EKG Brady Sanders MD completed EKG Brady Sanders MD completed
--- OUTSIDE RECORDS SUMMARY | 2024-08-02 10:36 | XMS_ITS | Continuity of Care Document ---
Author Organization [facility] [place] [address] [place] [address] [address] [place] [address] Phone Care Team Providers Care Cotton Feeder Name Role Phone [facility] Unavailable Unavail able Dhiraj Barkley Unavailable Unavailable Procedures Procedure Date Progressive Lens, Plastic Frames Deluxe Tint Photochromatic, Polycarb 0 Progressive Lens, Hi Index Eye Exam & Treatment Refraction Advance Directives Directive Yes / No Effective Date File Name No Information Encounters Encounter Description Practice Location Reason(s) For Visit Diagnoses Date Provider Providers Copied on Encounter [facility], [address] [place] [address] [address], [place], [place], [id number], [place] tel:[phone] [facility] No Information 0 [facility] . [address] [facility], [facility] [address] [place], [place], [id number], [place]. tel:[phone] Referring Provider: Fran Dumont, [address] [place] [address] [address], [place], [address]. tel:[phone] sulting Provider: Dhiraj Barkley, [address] [place] [address], [place], [address]. tel:[phone] [facility], [address] [place] [address] [address], [place], [place], [id number], [place] tel:[phone] [facility] No Information 0 [facility] NASRIN Peters. [address] [place] [address] , [address], [place], [address], [place]. tel:[phone] Family History Family Member Type Diagnosis Age At Onset No Information Payers Payer name Insurance type Covered democrat ID Mayelin wills(s) [employer] Plan CI [id number] Social History Type Description Quantity Date Captured Comments Sex Female Smoking Status No Information Chief Complaint And Reason For Visit No Information Reason For Referral Reason For Referral No Information History Of Present Illness Encounter Date Complaint History Of Prese nt Illness No Information Functional Status Date Functional Assessmen t No Information Instructions Date Instruction Additional Infor mation No Information Assessments Type Assessment Date No Information Patient Care Teams Name Effective Dates (start - stop) Status Members No Information
== END 2024-08-02 10:15 | disposition home or self-care (01) ==
PROVIDERS: PCP Internal Medicine; Visit Provider Internal Medicine Endocrinology, Diabetes & Metabolism
DX: E27.9 Disorder of adrenal gland, unspecified (principal)
CPT/HCPCS: 74150

== ENCOUNTER 2025-02-11 09:34 | Inpatient (IN) | payer MEDICARE, BC, SELFPAY ==
[2025-02-11] VITALS (21 sets, daily range): BP systolic 146–172; BP diastolic 59–76; PULSE 54–64; RESP 12–25; TEMP 36.1–36.6; O2SAT 94–98; BMI 30.9
--- NOTE | ~2025-02-11 | XR_ITS ---
EXAMINATION: XR chest 1V DATE: 02/11/2025 10:15 INDICATION: ALS TECHNIQUE: A single frontal view of the chest was obtained. COMPARISON: None. FINDINGS: The lungs are clear. Heart size normal. Left shoulder arthroplasty hardware partially visualized appears intact. IMPRESSION: 1. No focal acute process. Reviewed, dictated and finalized at location A. SITTER IMPRESSION: 1. No focal acute process.
--- NOTE | ~2025-02-11 | CT_ITS ---
EXAMINATION: CT brain wo con DATE: 02/11/2025 10:06 INDICATION: Headache TECHNIQUE: Computed tomography (CT) of the head was performed without intravenous contrast. The dose-length product was 681.00 mGy-cm. COMPARISON: July 27, 2019 FINDINGS: No gross intracranial mass effect or hemorrhage. No large acute ischemic event. Chronic microvascular ischemic appearing white matter changes of mild diffuse volume loss and probable old left basal ganglia lacunar infarction. Calvarial structures appear stable. IMPRESSION: 1. No intracranial bleed or large acute ischemic event. Reviewed, dictated and finalized at location A. LE SELECTOR
--- NOTE | ~2025-02-11 | CT_ITS ---
EXAM/PROCEDURE: CTA brain carotid HISTORY: POSSIBLE CVA, difficulty finding words, headache COMPARISON: None available. TECHNIQUE: IV contrast-enhanced CT angiography of the head and neck performed. FINDINGS: Left-sided bovine arch with common origin of the brachiocephalic and left common carotid artery. Both common carotid and cervical ICAs as well as the vertebral arteries are patent. The left vertebral artery is dominant. Within the intracranial circulation, the terminal carotid as well as anterior and middle cerebral arteries are patent bilaterally. Distal vertebral arteries basilar artery and posterior cerebral arteries are all patent. origin of the right PLANT OPERATIONS MANAGER. No discrete aneurysm dural sinus thrombosis, AVM or abnormal enhancing lesions or masses seen. Visualized portions of the ascending and descending thoracic aorta normal size. The main pulmonary artery measures 4.2 cm, and is enlarged. No filling defects seen in the visualized portions. Partially visualized left shoulder arthroplasty hardware appears intact. IMPRESSION: 1. No critical stenosis or occlusion. 2. Enlarged main pulmonary artery which could be associated with pulmonary arterial hypertension. 3. Incidental note of bovine aortic arch. Reviewed, dictated and finalized at location A. STAPLER IMPRESSION: 1. No critical stenosis or occlusion. 2. Enlarged main pulmonary artery which could be associated with pulmonary aditi rial hypertension. 3. Incidental note of bovine aortic arch.
--- NOTE | ~2025-02-11 | MR_ITS ---
EXAMINATION: MR brain/brain stem wo/w con DATE: 02/12/2025 14:22 INDICATION: Altered mental status TECHNIQUE: Magnetic resonance imaging (MRI) of the brain and brainstem was performed without and with 14 mL Multihance intravenous contrast. Sequences included sagittal and axial T1-weighted SE, axial diffusion-weighted FS SE, axial 3D SWAN, axial T2-weighted FLAIR, and axial T2-weighted FSE. Postcontrast axial and coronal T1-weighted SE was obtained. Apparent diffusion coefficient (ADC) maps were created. COMPARISON: Head CT and CT angiogram dated 02/11/2025 FINDINGS: Region of restricted diffusion and increased T2 signal in the left parietal lobe consistent with infarct. There is signal dropout on the susceptibility weighted images within the region of infarction which could be related to either thrombus within a vessel resulting in infarct or due to secondary microhemorrhage. No abnormal intracranial mass lesion. There are no intraparenchymal signal abnormalities seen on the other pulse sequences. The ventricles are symmetric and normal in size. There are no abnormal extra-axial fluid collections. Flow voids are seen in the cerebral arteries on the T2-weighted sequences consistent with their expected patency. Visualized orbits and soft tissues are unremarkable . There are no areas of abnormal enhancement on the post contrast images. IMPRESSION: 1. Small acute infarct in the left parietal lobe with central region of susceptibility artifact which could be due to thrombus associated with the infarct or small amount of secondary microhemorrhage. Reviewed, dictated and finalized at location A. RETE STONE FINISHER IMPRESSION: 1. Small acute infarct in the left parietal lobe with central region of suscept ibility artifact which could be due to thrombus associated with the infarct or small amount of secondary microhemorrhage.
--- NOTE | 2025-02-11 09:52 | ECG_ITS ---
Test Date: 2025-02-11 10:38:28 Measurements Intervals [place] Rate: 58 P: 0 MS: 0 QRS: 4 QRSD: 87 T: 54 QT: 424 QTc: 420 Interpretive Statements SINUS BRADYCARDIA WITH BASELINE ARTIFACT NONSPECIFIC T-WAVE ABNORMALITY Electronically Signed On 02-11-2025 11:26:58 [employer] by Robson Bullock D.O
[2025-02-11 10:50] LABS: Hematocrit 41.9 % (37.0-47.0); Hemoglobin 14.0 g/dL (12.0-15.0); Immature Granulocyte Percent A 0.3 % (0-0.5); Lymphocytes Absolute Auto 1.42 K/mm3 (0.9-3.2); Mean Corpuscular HGB Conc 33.4 g/dl (32-36); Mean Corpuscular Hemoglobin 31.5 pg (26-34); Mean Corpuscular Volume 94.2 fl (80-100); Nucleated Red Blood Cells Absolute Auto 0.000 K/mm3 (0.0-0.012); Nucleated Red Blood Cells Perc 0.0 % (0.0-0.2); Platelet Count Result 192 k/mm3 (150-375); Red Blood Count 4.45 M/mm3 (4.2-5.4); White Blood Count 6.3 K/mm3 (4.5-10.0)
[2025-02-11 11:01] LABS: Alanine Aminotransferase 21 U/L (6-35); Albumin Level 4.0 g/dL (3.5-5.1); Alkaline Phosphatase 55 U/L (38-126); Anion Gap 7 mmol/L (4-12); Aspartate Amino Transferase 33 U/L (14-36); Bilirubin,Total 0.8 mg/dL (0.2-1.3); Blood Urea Nitrogen 19 mg/dL (7-17); Calcium 9.3 mg/dL (8.4-10.2); Carbon Dioxide 27 mmol/L (22-30); Chloride 100 mmol/L (98-107); Estimated CRCL calculation 34 ml/min; Estimated Glomerular Filt Rate 50; Glucose 271 mg/dL (65-110); Potassium 4.3 mmol/L (3.4-5.0); Sodium 134 mmol/L (137-145); Total Protein 6.9 g/dL (6.3-8.2)
[2025-02-11 11:12] LABS: Troponin I < 0.012 ng/mL (0.000-0.034)
[2025-02-11 11:13] LABS: INR 0.9; Prothrombin Time 12.5 Seconds (11.1-14.7)
[2025-02-11 11:14] LABS: Partial Thromboplastin Time 24.3 Seconds (22.3-36.8)
--- NOTE | 2025-02-11 12:18 | ED_ITS ---
HPI - Neuro Symptoms/Deficit General Chief Complaint: Suspected CVA Stated Complaint: trouble finding her words LKW yest before bed Time Seen by Provider: 02/11/25 12:08 Source: patient Mode of arrival: ambulatory Limitations: no limitations History of Present Illness HPI Narrative: 79 years old white female last time was seen at a normal [facility] 9:00 p.m. last night. Woke up at 7:30 a.m., a start talking to her and was not able to say certain words. She denies any numbness, tingling, focal weakness, headache, dizziness, balance disorder. History of diabetes hypertension hyperlipidemia, patient currently on baby aspirin once a day. She denies any fever, chills, nausea, vomiting, chest pain, shortness of breath, back pain. Related Data Home Medications ?Medication ?Instructions ?Recorded ?Confirmed ?Last Taken ?Type cyanocobalamin (vitamin B-12) mcg 12/09/21 Unknown Hi story 1,000 mcg/mL injection solution dapagliflozin propanediol 10 mg mg 12/09/21 Unknown H istory tablet (Farxiga) dulaglutide 1.5 mg/0.5 mL mg subcut 12/09/21 Unknown History subcutaneous [facility] glimepiride 2 mg tablet mg 12/09/21 Unknown History levothyroxine 75 mcg tablet mcg 12/09/21 Unknown Hist ory lisinopril 5 mg tablet mg 12/09/21 Unknown History magnesium oxide 400 mg (241.3 mg mg 12/09/21 Unknown History magnesium) tablet metformin 500 mg tablet,extended mg PO 12/09/21 Unkno wn History release 24 hr metoprolol succinate 25 mg mg PO 12/09/21 Unknown His tory tablet,extended release 24 hr pravastatin 80 mg tablet mg 12/09/21 Unknown History Allergies Allergy/AdvReac Type Severity Reaction Status Date / Time iodine Allergy Severe Swelling Verified 02/11/25 11:14 of Lip/Tongue/Throat Sulfa (Sulfonamide Allergy Unknown Verified 02/11/25 11:14 Antibiotics) Review of Systems 2 Review of Systems: All systems reviewed & are unremarkable except as noted in HPI and below PMFSH Past Medical History Medical History Hypertension Hypothyroidism Dyslipidemia Diabetes mellitus Surgical History Surgical History History of esophagogastroduodenoscopy (EGD) History of tonsillectomy History of hysterectomy History of cholecystectomy History of colon resection Social History Social History Smoking status: Never smoker Gender identity (if verbalized by the patient): Female Exam 2 Narrative: General appearance: Well-developed, well-nourished Skin: Normal color Head: Normocephalic, nontraumatic Eyes: Clear conjunctiva ENT: Oropharynx normal, ears normal, nose normal Neck: Supple, nontender Chest and respiratory: Airway patent, no respiratory distress, no accessory muscle use Heart: Regular rate/rhythm Abdomen: Soft, nontender, no organomegaly, quiet bowel sounds Vascular: Normal peripheral pulses, normal capillary refill. Musculoskeletal: Normal range of motion, nontender back Neurologic: Alert and oriented ?3, Course Consultations Consultation #1: Dr. Meyer Date: 02/11/25 Vital Signs Vital signs: Vital Signs Temperature 36.5 C 02/11/25 09:42 Pulse Rate 59 L 02/11/25 09:42 Respiratory Rate 20 02/11/25 09:42 Blood Pressure 162/59 H 02/11/25 09:42 Pulse Oximetry 98 02/11/25 09:42 Oxygen Delivery Room Air 02/11/25 09:42 Temperature 36.5 C 02/11/25 09:42 Pulse Rate 60 02/11/25 11:13 Respiratory Rate 22 H 02/11/25 11:11 Blood Pressure 164/65 H 02/11/25 11:11 Pulse Oximetry 96 02/11/25 11:11 Oxygen Delivery Room Air 02/11/25 10:57 MDM - Neuro Symptoms/Deficit MDM Narrative Medical decision making narrative: Patient presents with aphasia Vital signs on arrival showing blood pressure 162/59 otherwise within normal limit Physical examination consistent with expressive aphasia otherwise within normal limit Differential diagnosis include hypoglycemia, acute CVA, intracranial tumor, bleeding, electrolyte imbalance, dehydration, anxiety like symptoms Blood workup today includes CBC, CMP, coags showed blood glucose 271 otherwise within normal limit Chest x-ray showed no acute abnormality CT head without contrast showed no acute abnormality CTA head and neck showed no critical stenosis or occlusion EKG SHOWED SINUS BRADYCARDIA AT 58, NONSPECIFIC T-WAVE ABNORMALITY STROKE SCALE IS 1 ADMIT TO HOSPITALIST DIAGNOSIS ACUTE CVA WITH APHASIA DISCUSSED WITH DR. Meyer Differential Diagnosis Differential diagnosis: Likely other (As above) Lab Data Attestation: I reviewed the patient's lab results. 02/11/25 10:43 02/11/25 10:43 Labs: Lab Results 02/11/25 02/11/25 Range/Units 09:41 10:43 WBC 6.3 (4.5-10.0) K/mm3 RBC 4.45 (4.2-5.4) M/mm3 Hgb 14.0 (12.0-15.0) g/dL Hct 41.9 (37.0-47.0) % MCV 94.2 (80-100) fl MCH 31.5 (26-34) pg MCHC 33.4 (32-36) g/dl RDW 13.3 (11.5-14.5) % Plt Count 192 (150-375) k/mm3 MPV 11.6 H (7.4-10.4) fl Immature Gran % (Auto) 0.3 (0-0.5) % Neut % (Auto) 57.3 (45.5-73.1) % Lymph % (Auto) 22.7 (18.3-44.2) % Wilbarger % (Auto) 15.5 H (2.6-8.5) % Eos % (Auto) 3.7 (0-4.4) % Baso % (Auto) 0.5 (0.2-1.2) % Lymph # (Auto) 1.42 (0.9-3.2) K/mm3 Wilbarger # (Auto) 1.0 H (0.1-0.6) K/mm3 Eos # (Auto) 0.2 (0-0.3) K/mm3 Baso # (Auto) 0.0 (0.0-0.1) K/mm3 Abs Immat Gran (auto) 0.02 (0.00-0.031) K/mm3 Absolute Neuts (auto) 3.6 (1.3-6.7) K/mm3 Absolute Nucleated RBC 0.000 (0.0-0.012) K/mm3 Nucleated RBC % 0.0 (0.0-0.2) % PT 12.5 (11.1-14.7) Seconds INR 0.9 APTT 24.3 (22.3-36.8) Seconds Sodium 134 L (137-145) mmol/L Potassium 4.3 (3.4-5.0) mmol/L Chloride 100 (98-107) mmol/L Carbon Dioxide 27 (22-30) mmol/L Anion Gap 7 (4-12) mmol/L BUN 19 H (7-17) mg/dL Creatinine 1.06 H (0.7-1.0) mg/dL Estim Creat Clear Calc 34 ml/min Estimated GFR 50 L (59 - ) Glucose 271 H (65-110) mg/dL POC Capillary Glucose 259 H (65-105) mg/dl Calcium 9.3 (8.4-10.2) mg/dL Total Bilirubin 0.8 (0.2-1.3) mg/dL AST 33 (14-36) U/L ALT 21 (6-35) U/L Alkaline Phosphatase 55 (38-126) U/L Troponin I < 0.012 (0.000-0.034) ng/mL Total Protein 6.9 (6.3-8.2) g/dL Albumin 4.0 (3.5-5.1) g/dL Imaging Data Radiologist's impression: Impressions Head CT 02/11/25 10:08 IMPRESSION: 1. No intracranial bleed or large acute ischemic event. Chest X-Ray 02/11/25 10:16 IMPRESSION: 1. No focal acute process. Head/Neck CTA 02/11/25 10:59 IMPRESSION: 1. No critical stenosis or occlusion. 2. Enlarged main pulmonary artery which could be associated with pulmonary arterial hypertension. 3. Incidental note of bovine aortic arch. ECG Data EKG #1: Attestation: I personally reviewed and interpreted this ECG as follows: ECG completion date: 02/11/25 Interpretation: Sinus bradycardia at 58 beats per minute, nonspecific T-wave abnormality Critical Care Time Critical Care Time Critical Care Time: No Discharge Plan Discharge Clinical Impression: Acute cerebrovascular accident (CVA) Patient Disposition: Still a Patient Condition: Stable Patient Language: Vietnamese Prescriptions: No Action glimepiride 2 mg tablet levothyroxine 75 mcg tablet pravastatin 80 mg tablet magnesium oxide 400 mg (241.3 mg magnesium) tablet cyanocobalamin (vitamin B-12) 1,000 mcg/mL solution lisinopril 5 mg tablet metoprolol succinate 25 mg tablet extended release 24 hr PO metformin 500 mg tablet extended release 24 hr PO Farxiga 10 mg tablet Trulicity 1.5 mg/0.5 mL pen injector SUBCUT mupirocin 2 % ointment 1 applic topical BID Qty: 22 0RF cephalexin 500 mg capsule 500 mg PO Q12H 7 Days Qty: 14 0RF Follow-up/Referrals: Chepe,Morro Hadley MD [Primary Care Provider] Quality Stroke Scale Stroke Scale 1: Stroke scale date:: 02/11/25 Stroke scale time:: 13:11 1a Level of consciousness: alert-0 1b Level of consciousness questions: answers both correctly-0 1c Level of consciousness commands: obeys both correctly-0 2 Best gaze: normal-0 3 Visual: no visual loss-0 4 Facial palsy: normal-0 5a Motor: left arm: no drift-0 5b Motor: right arm: no drift-0 6a Motor: left leg: no drift-0 6b Motor: right leg: no drift-0 7 Limb ataxia: absent-0 8 Sensory: normal-0 9 Best language: some loss of fluency-1 10 Dysarthria: normal-0 11 Extinction and inattention: no abnormality-0 Level:: 1
[2025-02-11] MEDS: CLOPIDOGREL BISULFATE 300 MG TABLET PO (13:16)
--- NOTE | 2025-02-11 16:02 | WPCEDHO ---
ED Hand Off Checklist All vitals saved: yes IV Site documented: yes All med administrations documented: yes Triage Note Triage Note Per , pt was struggling 02/11/25 10:57 forming words this morning and is c/o headache. States last normal was last night. Pt still struggling with words. Denies weakness to one side over other. A&Ox4. Denies blood thinner use. BS at triage 259 this RN agrees with triage assessment Allergies iodine Allergy (Severe, Verified 02/11/25 11:14) Swelling of Lip/Tongue/Throat itching in mouth/throat Sulfa (Sulfonamide Antibiotics) Allergy (Verified 02/11/25 11:14) Unknown Administered/Completed Medications Discontinued Medications Clopidogrel Bisulfate (Clopidogrel Bisulfate 300 Mg Tablet) 300 mg PO ONCE ONE Stop: 02/11/25 13:01 Last Admin: 02/11/25 13:16 Dose: 300 mg Documented By: NAVID Interventions/Assessments Cardiac Monitoring Start: 02/11/25 09:42 Freq: Status: Active Protocol: Document 02/11/25 11:13 BRENDAW (Rec: 02/11/25 11:13 BRENDAW [id number]) Propeller Driven Airplane Mechanic Assessment Propeller Driven Airplane Mechanic Yes Applied Pulse Rate (60-100) 60 EKG Rythm Sinus Rhythm IV / Saline Lock, Insert Start: 02/11/25 09:52 Freq: STAT Status: Active Protocol: Document 02/11/25 11:13 KNW (Rec: 02/11/25 11:13 KNW [id number]) IV Assessment Peripheral Access Right Forearm IV Catheter Access Initiated IV Insertion Date 02/11/25 IV Insertion Time 11:13 Catheter Gauge 18 IV Insertion 1 Attempts Ultrasound Used for No Placement IV Site Assessment WNL IV Care and WNL Maintenance PA: Neurological Assessment Start: 02/11/25 09:42 Freq: Status: Active Protocol: Document 02/11/25 11:00 KNW (Rec: 02/11/25 11:07 KNW [id number]) Neurological Assessment Level of Alert,Awake Consciousness Arousable to Verbal Orientation Oriented to Person,Oriented to Place,Oriented to Time Neurological Dysphasia,Headache Symptoms Behavior Appropriate,Cooperative Patient Able to Comprehend Comprehension Memory Description Intact Ability to Maintain Normal Balance Facial Symmetry Symmetrical Speech Pattern Aphasic,Slurred Ability to Swallow Normal Tongue Position Midline Finger to Nose Test Normal Performance Heel to Seay Test Minimal Impairment Bilateral Foot/Feet Extremity Movement Weak Push Description Bilateral Hand(s) Extremity Movement Weak Shearer Screen Measurer And Trimmer Description Right Leg(s) Sensation Heavy Description Andres Coma Scale Eyes Open Verbal Oriented and Alert Motor Follows Commands Accord Coma Total 15 Score Last Vital Signs Temperature 97.7 F 02/11/25 09:42 Pulse Rate 62 02/11/25 15:30 Respiratory Rate 24 H 02/11/25 15:30 Pulse Oximetry 96 02/11/25 15:30 Blood Pressure 164/76 H 02/11/25 15:30 Blood Pressure Mean 105 02/11/25 15:30 Blood Pressure Position Supine 02/11/25 10:57 Oxygen Delivery Room Air 02/11/25 10:57 Weight 72.2 kg 02/11/25 10:57 Last Result - Abnormals Only MPV 11.6 fl (7.4-10.4) H 02/11/25 10:43 Stanley % (Auto) 15.5 % (2.6-8.5) H 02/11/25 10:43 Stanley # (Auto) 1.0 K/mm3 (0.1-0.6) H 02/11/25 10:43 Sodium 134 mmol/L (137-145) L 02/11/25 10:43 BUN 19 mg/dL (7-17) H 02/11/25 10:43 Creatinine 1.06 mg/dL (0.7-1.0) H 02/11/25 10:43 Estimated GFR 50 (59-) L 02/11/25 10:43 Glucose 271 mg/dL (65-110) H 02/11/25 10:43 POC Capillary Glucose 243 mg/dl (65-105) H 02/11/25 15:33 Most Recent Suicide Severity Rating Suicide Severity Rating NO RISK INDICATED 02/11/25 10:57
--- NOTE | 2025-02-11 17:01 | ADMGEN ---
This patient, Coco Diaz, was admitted to 2 Medical Room 254-01. Patient/family oriented to hospital policies and general routines including ID bracelet, bed and alarms, visiting hours, pain management, procedures, bathroom and other care routines, personal items, smoking policy, room service/diet, and visiting hours. Information on how to activate the Rapid Response Team has been discussed. Patient/Family are encouraged to report perceived risks to care and to ask questions if they do not understand what they are told or what they should do.
[2025-02-11] MEDS: INSULIN ASPART (*BKC) 100 UNITS/ML SUB-Q (17:39)
[2025-02-11] MEDS: ACETAMINOPHEN 325 MG TABLET 650 MG PO (17:40)
--- NOTE | 2025-02-11 19:41 | P.HP_ITS ---
H&P: HPI History of Present Illness Date/Time: 02/11/25 19:41 Chief Complaint: Aphasia Narrative: 79-year-old female with past medical history of DM 2, HTN, hypothyroidism, hyperlipidemia presents to the ED on 02/11/2025 with complaints of aphasia. Last known well was 9:00 p.m. on 02/10. Patient woke up this morning at 7:30 a.m. in attempted to speak to her and was not able to say certain words or replaced them with incorrect words. Denies weakness, headache, dizziness, numbness, vision changes. Denies any chest pain or shortness of breath. Patient is ambulatory and A&O x4 at baseline. Denies any past CVA or TIA. Initial vital signs 162/59, HR 59, respirations 20, afebrile and 98% on room air Labs largely unremarkable. Sodium 134, BUN 19, creatinine 1.06 (unknown baseline) with GFR 50, glucose 271. Troponin negative. ECG with sinus bradycardia Head CT with chronic microvascular ischemia and probable old left basal ganglial lacunar infarct. No acute ischemia or bleed noted. Chest x-ray no acute process. CTA head neck no critical stenosis or occlusion, enlarged main pulmonary artery could be associated with pulmonary arterial hypertension, incidental finding of bovine aortic arch Review of Systems Review of Systems: All systems reviewed & are unremarkable except as noted in HPI and below PMFSH Past Medical History Medical History Hypertension Hypothyroidism Dyslipidemia Diabetes mellitus Surgical History Surgical History History of esophagogastroduodenoscopy (EGD) History of tonsillectomy History of hysterectomy History of cholecystectomy History of colon resection Social History Social History Smoking status: Never smoker Second hand tobacco smoke exposure: No Alcohol intake: never Substance use: never Substance use type: does not use Lack of Transportation: No Lack of Food: Never True Current Housing: I Have Housing Concerned About Future Housing: No Difficulty Paying Gas/Electric Bills: No Difficulty Paying for Meds: No Currently Unemployed: No Education: Don't Know Difficulty w/ Childcare or Family Care: No Gender identity (if verbalized by the patient): Female Spiritual care concerns: No Meds Home Medications and Allergies Home Medications ?Medication ?Instructions ?Recorded ?Confirmed ?Type cyanocobalamin (vitamin B-12) 1,000 mcg subcut MONTHLY 12/09/21 02/11/25 History 1,000 mcg/mL injection solution dapagliflozin propanediol 10 mg 10 mg PO DAILY 2 02/11/25 History tablet (Farxiga) levothyroxine 75 mcg tablet 75 mcg PO DAILY 12/09/21 1 04/13/24 History lisinopril 5 mg tablet 5 mg PO DAILY 12/09/2102/11 History metformin 500 mg tablet,extended 500 mg PO DAILY 12/0902/11/25 History release 24 hr pravastatin 80 mg tablet 80 mg PO DAILY 12/09/2101/26 History aspirin 81 mg tablet,delayed 81 mg PO DAILY 02/11/25 1 04/13/24 History release (Adult Aspirin Regimen) insulin glargine U-300 conc 300 40 unit subcut QHS 02/11/25 History unit/mL (3 mL) subcutaneous pen (Toujeo Max U-300 SoloStar) lansoprazole 30 mg capsule,delayed 30 mg PO DAILY 01/2602/11/25 History release metoprolol tartrate 50 mg tablet 50 mg PO BID 02/11/25 02/11/25 History Allergies Allergy/AdvReac Type Severity Reaction Status Date / Time iodine Allergy Severe Swelling Verified 02/11/25 17:02 of Lip/Tongue/Throat Sulfa (Sulfonamide Allergy Unknown Verified 02/11/25 17:02 Antibiotics) Vital Signs Vital Signs - 24 hr 02/11/25 09:42 02/11/25 10:57 02/11/25 11:08 Temperature 97.7 F Pulse Rate 59 L 59 L 59 L Respiratory Rate 20 19 23 H Blood Pressure 162/59 H 172/60 H 164/65 H Pulse Oximetry 98 96 97 Oxygen Delivery Room Air Room Air 02/11/25 11:11 02/11/25 11:13 02/11/25 11:16 Temperature Pulse Rate 60 60 59 L Respiratory Rate 22 H 20 Blood Pressure 164/65 H 154/61 H Pulse Oximetry 96 97 Oxygen Delivery 02/11/25 11:31 02/11/25 11:45 02/11/25 12:00 Temperature Pulse Rate 58 L 57 L 56 L Respiratory Rate 24 H 24 H 22 H Blood Pressure 154/62 H 152/67 H 154/61 H Pulse Oximetry 96 97 96 Oxygen Delivery 02/11/25 12:15 02/11/25 12:30 02/11/25 13:32 Temperature Pulse Rate 57 L 57 L 56 L Respiratory Rate 15 23 H 21 H Blood Pressure 146/61 H 155/60 H 156/73 H Pulse Oximetry 97 97 97 Oxygen Delivery 02/11/25 14:01 02/11/25 15:00 02/11/25 15:01 Temperature Pulse Rate 58 L 62 59 L Respiratory Rate 25 H 19 19 Blood Pressure 155/71 H 151/70 H 151/70 H Pulse Oximetry 97 97 96 Oxygen Delivery 02/11/25 15:30 02/11/25 17:04 Temperature 97.9 F Pulse Rate 62 64 Respiratory Rate 24 H 18 Blood Pressure 164/76 H 152/65 H Pulse Oximetry 96 94 Oxygen Delivery Exam Narrative: GENERAL: non-toxic appearing, in no acute distress. HEAD: Normocephalic, atraumatic. EYES: PERRLA. Conjunctivae clear. NOSE: Normal no drainage. THROAT: Pharynx clear, no exudate. NECK: Trachea midline. No adenopathy, no masses. RESPIRATORY: Airway patent, respirations nonlabored. CTA. CARDIOVASCULAR: Regular rate and rhythm BREASTS: Defer GASTROINTESTINAL: Abdomen is soft and nontender. No organomegaly. Bowel sounds normal in all quadrants. GENITOURINARY: Defer MUSCULOSKELETAL: Moves all extremities equally. No gross deformities. SKIN: Warm, dry, normal color. NEURO: A&O X4. Speech clear. Aphasia noted with difficulty finding words, slow response and some incorrect words PSYCHIATRIC: Normal interaction H&P: Results Labs Labs: Short CBC 02/11/25 Range/Units 10:43 WBC 6.3 (4.5-10.0) K/mm3 Hgb 14.0 (12.0-15.0) g/dL Hct 41.9 (37.0-47.0) % Plt Count 192 (150-375) k/mm3 [facility] 02/11/25 10:43 Sodium 134 L Potassium 4.3 Chloride 100 Carbon Dioxide 27 BUN 19 H Creatinine 1.06 H Glucose 271 H Calcium 9.3 Cardiac Enzymes 02/11/25 Range/Units 10:43 Troponin I < 0.012 (0.000-0.034) ng/mL Liver Function 02/11/25 Range/Units 10:43 Total Bilirubin 0.8 (0.2-1.3) mg/dL AST 33 (14-36) U/L ALT 21 (6-35) U/L Alkaline Phosphatase 55 (38-126) U/L Albumin 4.0 (3.5-5.1) g/dL Assessment and Plan Assessment and plan (1) Acute cerebrovascular accident (CVA): Code(s): I63.9 - Cerebral infarction, unspecified Status: Acute Assessment and Plan: New deficits of aphasia starting on 02/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 No acute ischemia or bleed noted. Chest x-ray no acute process. CTA head neck no critical stenosis or occlusion, enlarged main pulmonary artery could be associated with pulmonary arterial hypertension - admission for observation and telemetry - not candidate for thrombolytics due to timeframe - neurology consulted - brain MRI w/wo ordered - echo w/Bubble ordered - neuro checks Q4 - consistent carb diet - speech eval - PT/OT not indicated - monitor daily labs, lipid panel, A1C - up with assist - continue pravastatin - start Plavix 75 mg PO daily - continue ASA 81 mg daily - consider 30 day event monitoring at discharge (2) Diabetes mellitus: Qualifiers: Diabetes mellitus complication status: without complication Diabetes mellitus 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 Diabetes mellitus type: type 2 Qualified Code(s): E11.9 - Type 2 diabetes mellitus without complications; Z79.4 - bed bug exterminator (current) use of insulin Code(s): E11.9 - Type 2 diabetes mellitus without complications Status: Chronic Assessment and Plan: - hypoglycemia protocol - POC blood glucose ACHS - home medication: Farxiga, Toujeo, metformin - correct regimen ordered: Moderate corrective dose - A1C ordered (3) Dyslipidemia: Code(s): E78.5 - Hyperlipidemia, unspecified Status: Chronic Assessment and Plan: Continue pravastatin (4) Hypertension: Qualifiers: Hypertension type: primary hypertension Qualified Code(s): I10 - Essential (primary) hypertension Code(s): I10 - Essential (primary) hypertension Status: Chronic Assessment and Plan: Continue lisinopril, metoprolol (5) Hypothyroidism: Qualifiers: Hypothyroidism type: unspecified Qualified Code(s): E03.9 - Hypothyroidism, unspecified Code(s): E03.9 - Hypothyroidism, unspecified Status: Acute Assessment and Plan: Continue levothyroxine Plan Diet: Consistent carb GI prophylaxis: Lansoprazole DVT prophylaxis: SCDs lines/drains: PIV Fluids: NA Code status: Full Quality VTE Prophylaxis VTE prophylaxis: mechanical ordered Hospitalist MIPS Advance Care Plan I have confirmed that the patient's Advanced Care Plan is present, code status is documented, or surrogate decision maker is listed in patient medical record.: Yes Medication Reconciliation I have utilized all available resources to obtain, update and review the patients current medications (includes all prescriptions, OTC, herbals, cannabis, and nutritional supplements).: Yes
[2025-02-11] MEDS: METOPROLOL TARTRATE 50 MG TAB PO (20:25)
[2025-02-12] VITALS (12 sets, daily range): BP systolic 128–132; BP diastolic 56–66; PULSE 48–68; RESP 12–16; TEMP 36.3–36.6; O2SAT 94–96
--- NOTE | 2025-02-12 | ECHO_ITS ---
Patient Info Name: Coco Diaz Age: 79 years : 1945 Gender: Female Ht: 60 in Wt: 158 lbs BSA: 1.77 m2 HR: 57 bpm BP: 132 / 63 mmHg Heart Rhythm: Sinus Rhythm Technical Quality: Good Exam Date: 02/12/2025 10:37 AM Patient Status: I Admit Date: 02/12/2025 Exam Type: CA echo doppler w bubble study Complete two-dimensional, color flow and Doppler transthoracic echocardiogram is performed with agitated saline. Staff Referring Physician: Fide Rolon Game Farm Helper: Lenora Sanabria Attending Provider: Mikael Rodrigez Contrast/Agitated Saline Contrast/Ag. Saline: Agitated Saline Amount: 20.00 ml Summary 1. Left ventricular chamber dimension is normal. 2. Left ventricular systolic function is normal, estimated at 60-65. 3. There is mildly increased left ventricular wall thickness. 4. The left ventricular diastolic function is grade I diastolic dysfunction. 5. Left atrial chamber dimension is mildly enlarged. 6. Intact interatrial septum visualized by color flow and agitated saline imaging. 7. There is mild aortic valve regurgitation. 8. There is mild mitral valve regurgitation. 9. There is mild tricuspid valve regurgitation. 10. There is mild pulmonic regurgitation. Left Ventricle Left ventricular chamber dimension is normal. Left ventricular systolic function is normal, estimated at 60-65. There is mildly increased left ventricular wall thickness. The left ventricular diastolic function is grade I diastolic dysfunction. Right Ventricle Right ventricular chamber dimension is normal. Right ventricular systolic function is normal. Left Atria Left atrial chamber dimension is mildly enlarged. Right Atria Right atrial chamber dimension is normal. Atrial Septum Intact interatrial septum visualized by color flow and agitated saline imaging. Aortic Valve The aortic valve is trileaflet. There is mild aortic valve sclerosis. There is no aortic valve stenosis. There is mild aortic valve regurgitation. Pulmonic Valve The pulmonic valve is normal. There is no pulmonic valve stenosis. There is mild pulmonic regurgitation. Mitral Valve The mitral valve has normal leaflets. There is no mitral valve stenosis. There is mild mitral valve regurgitation. Tricuspid Valve The tricuspid valve leaflets are normal. There is no significant tricuspid valve stenosis. There is mild tricuspid valve regurgitation. No pulmonary hypertension, estimated pulmonary arterial systolic pressure is 27 mmHg. Pericardium/Pleural The pericardium appears normal. There is no pericardial effusion. Inferior Vena Cava Normal inferior vena cava with >50% collapse upon inspiration consistent with normal right atrial pressure, 5 mmHg. Aorta The aortic root size at the sinus of Valsalva is normal. Left Ventricular Outflow Tract Name Value Normal LVOT 2D LVOT Diameter 2.0 cm LVOT Doppler LVOT Peak Velocity 115 cm/s LVOT Peak Gradient 5 mmHg LVOT Mean Gradient 3 mmHg LVOT VTI 30 cm LVOT Stroke Volume 93 ml LVOT CO 5.3 l/min LVOT CI 3.0 l/min/m2 Pulmonic Valve Name Value Normal RVOT Doppler RVOT Peak Velocity 51 cm/s RVOT Peak Gradient 1 mmHg Mitral Valve Name Value Normal MV Diastolic Function MV E Peak Velocity 76 cm/s MV A Peak Velocity 102 cm/s MV E/A 0.7 MV Decel Time (PW) 251 ms MV Annular TDI MV E/e' (Septal) 12.7 MV E/e' (Lateral) 8.3 MV E/e' (Average) 10.5 Tricuspid Valve Name Value Normal TV Regurgitation Doppler TR Peak Velocity 233 cm/s TR Peak Gradient 21 mmHg Estimated PAP/RSVP RA Pressure 5 mmHg <=5 PA Systolic Pressure 27 mmHg <36 RV Systolic Pressure 27 mmHg <36 Aortic Valve Name Value Normal AV Doppler AV Peak Velocity 136 cm/s AV Peak Gradient 7 mmHg AV Area (Cont Eq Adam) 2.6 cm2 AV DI (Adam) 0.84 AV Regurgitation 2D LVOT Area 3.1 cm2 Ventricles Name Value Normal LV Dimensions 2D/MM IVS Diastolic Thickness (2D) 0.7 cm 0.6-1.0 LVID Diastole (2D) 3.9 cm 3.8-5.2 LVIW Diastolic Thickness (2D) 0.9 cm 0.6-0.9 LVID Systole (2D) 2.6 cm 2.2-3.5 LVOT Diameter 2.0 cm LV Mass (2D Cubed) 90.96 g 67.00-162.00 LV Mass Index (2D Cubed) 51 g/m2 43-95 Relative Wall Thickness (2D) 0.47 <=0.42 LV Fractional Shortening/Ejection Fraction 2D/MM LV Fractional Shortening (2D) 33 % 27-45 LV EF (2D Teichholz) 63 % LV Diastolic Volume (4C MOD) 68 ml LV EF (4C MOD) 55 % LV Diastolic Volume (2C MOD) 73 ml LV EF (2C MOD) 72 % LV Diastolic Volume (BP MOD) 71 ml 46-106 LV Diastolic Volume Index (BP MOD) 40 ml/m2 29-61 LV Systolic Volume (BP MOD) 25 ml 14-42 LV Systolic Volume Index (BP MOD) 14 ml/m2 8-24 LV EF (BP MOD) 65 % 54-74 LV Diastolic Length (4C) 7.2 cm LV Systolic Length (4C) 5.9 cm LV Stroke Volume (4C MOD) 38 ml Atria Name Value Normal LA Dimensions LA Volume (4C A-L) 25 ml LA Volume (BP A-L) 28 ml RA Dimensions RA Systolic Major [place] Length (4C) 4.3 cm 2.2-2.8 RA Area (4C) 9.4 cm2 <=18.0 Report Signatures
[2025-02-12 04:44] LABS: Hematocrit 40.0 % (37.0-47.0); Hemoglobin 13.2 g/dL (12.0-15.0); Immature Granulocyte Percent A 0.4 % (0-0.5); Lymphocytes Absolute Auto 1.33 K/mm3 (0.9-3.2); Mean Corpuscular HGB Conc 33.0 g/dl (32-36); Mean Corpuscular Hemoglobin 30.6 pg (26-34); Mean Corpuscular Volume 92.8 fl (80-100); Nucleated Red Blood Cells Absolute Auto 0.000 K/mm3 (0.0-0.012); Nucleated Red Blood Cells Perc 0.0 % (0.0-0.2); Platelet Count Result 173 k/mm3 (150-375); Red Blood Count 4.31 M/mm3 (4.2-5.4); White Blood Count 5.3 K/mm3 (4.5-10.0)
[2025-02-12 05:05] LABS: Hemoglobin A1C 11.7 % (<5.7)
[2025-02-12 05:06] LABS: Anion Gap 4 mmol/L (4-12); Blood Urea Nitrogen 16 mg/dL (7-17); Calcium 9.0 mg/dL (8.4-10.2); Carbon Dioxide 29 mmol/L (22-30); Chloride 100 mmol/L (98-107); Cholesterol 124 mg/dL (0-200); Estimated CRCL calculation 33 ml/min; Estimated Glomerular Filt Rate 48; Glucose 270 mg/dL (65-110); HDL Direct 45 mg/dL; Potassium 4.3 mmol/L (3.4-5.0); Sodium 133 mmol/L (137-145); Triglycerides 138 mg/dL (<150)
[2025-02-12] MEDS: LEVOTHYROXINE SODIUM 75 MCG TABLET PO (06:06)
--- NOTE | 2025-02-12 07:19 | P.PNIM_ITS ---
Progress Note: A&P Assessment and Plan (1) Acute cerebrovascular accident (CVA): Code(s): I63.9 - Cerebral infarction, unspecified Status: Acute Assessment and Plan: - presented with new deficits of aphasia starting on 02/11 at 0730. - CT head with chronic microvascular ischemia and probable old left basal ganglial lacunar infarct. No acute ischemia or bleed noted. -Chest x-ray no acute process. - CT head no acute process - CTA head neck no critical stenosis or occlusion, enlarged main pulmonary artery could be associated with pulmonary arterial hypertension - PT/OT/PARK KEEPER - monitor on telemetry - received Plavix load - continue home ASA, statin. Started on Plavix 75 mg daily. - MRI brain ordered - echo pending - neurology consulted, appreciate recs (2) Diabetes mellitus: Qualifiers: Diabetes mellitus complication status: without complication Diabetes mellitus termite treater insulin use: with group home use Diabetes mellitus type: type 2 Qualified Code(s): E11.9 - Type 2 diabetes mellitus without complications; Z79.4 - joint terminal attack controller (current) use of insulin Code(s): E11.9 - Type 2 diabetes mellitus without complications Status: Chronic Assessment and Plan: - hemoglobin A1c - 11.7 - hold home metformin, Farxiga - Resume basal insulin at reduced dose - pharmacy to dose. Continue SSI. - hypoglycemia protocol - POC blood glucose ACHS (3) Dyslipidemia: Code(s): E78.5 - Hyperlipidemia, unspecified Status: Chronic Assessment and Plan: -Continue pravastatin (4) Hypertension: Qualifiers: Hypertension type: primary hypertension Qualified Code(s): I10 - Essential (primary) hypertension Code(s): I10 - Essential (primary) hypertension Status: Chronic Assessment and Plan: -Continue lisinopril, metoprolol (5) Hypothyroidism: Qualifiers: Hypothyroidism type: unspecified Qualified Code(s): E03.9 - Hypothyroidism, unspecified Code(s): E03.9 - Hypothyroidism, unspecified Status: Acute Assessment and Plan: -Continue levothyroxine - follow-up TSH (6) CKD (chronic kidney disease): Code(s): N18.9 - Chronic kidney disease, unspecified Status: Acute Assessment and Plan: - Cr 1.11, unclear baseline - monitor BMP - avoid nephrotoxins (7) Bradycardia: Code(s): R00.1 - Bradycardia, unspecified Status: Acute Assessment and Plan: - HR 50s - not on offending meds - EKG sinus geronimo. No events on tele - monitor on tele Plan DVT prophylaxis: Lovenox Code status: Full Dispo: TBD Subjective Date/time seen: 02/12/25 07:19 Interval history: 79-year-old female with past medical history of DM 2, HTN, hypothyroidism, hyperlipidemia presents to the ED on 02/11/2025 with complaints of aphasia. Patient still with mild aphasia, improved from yesterday. Denies focal weakness, facial droop, numbness/tingling. Denies prior history of stroke. Review of Systems Review of Systems: All systems reviewed & are unremarkable except as noted in HPI and below Exam Narrative: General: NAD Eyes: EOMI ENT: neck supple Cardiovascular: Regular rate and rhythm Respiratory: Clear to auscultation, respirations even and unlabored on RA Gastrointestinal: Soft, non tender Genitourinary: no suprapubic tenderness Musculoskeletal: No edema Skin: warm, dry Neuro: Alert and oriented x4. Cranial nerves II-XII intact. Face symmetric. Mild expressive aphasia. Strength 5/5 in BUEs/BLEs. Sensation to light touch intact face, BUE/BLEs. No dysmetria BUE/BLEs. Psych: Mood appropriate Objective Data Vital Signs Vital Signs: Vital Signs - 24 hr 02/11/25 09:42 02/11/25 10:57 02/11/25 11:08 Temperature 97.7 F Pulse Rate 59 L 59 L 59 L Respiratory Rate 20 19 23 H Blood Pressure 162/59 H 172/60 H 164/65 H Pulse Oximetry 98 96 97 Oxygen Delivery Room Air Room Air 02/11/25 11:11 02/11/25 11:13 02/11/25 11:16 Temperature Pulse Rate 60 60 59 L Respiratory Rate 22 H 20 Blood Pressure 164/65 H 154/61 H Pulse Oximetry 96 97 Oxygen Delivery 02/11/25 11:31 02/11/25 11:45 02/11/25 12:00 Temperature Pulse Rate 58 L 57 L 56 L Respiratory Rate 24 H 24 H 22 H Blood Pressure 154/62 H 152/67 H 154/61 H Pulse Oximetry 96 97 96 Oxygen Delivery 02/11/25 12:15 02/11/25 12:30 02/11/25 13:32 Temperature Pulse Rate 57 L 57 L 56 L Respiratory Rate 15 23 H 21 H Blood Pressure 146/61 H 155/60 H 156/73 H Pulse Oximetry 97 97 97 Oxygen Delivery 02/11/25 14:01 02/11/25 15:00 02/11/25 15:01 Temperature Pulse Rate 58 L 62 59 L Respiratory Rate 25 H 19 19 Blood Pressure 155/71 H 151/70 H 151/70 H Pulse Oximetry 97 97 96 Oxygen Delivery 02/11/25 15:30 02/11/25 17:04 02/11/25 20:00 Temperature 97.9 F Pulse Rate 62 64 54 L Respiratory Rate 24 H 18 12 Blood Pressure 164/76 H 152/65 H Pulse Oximetry 96 94 95 Oxygen Delivery Room Air 02/11/25 20:02 02/11/25 20:13 02/11/25 20:25 Temperature 97.0 F L Pulse Rate 57 L 54 L 54 L Respiratory Rate 12 Blood Pressure 157/64 H Pulse Oximetry 95 Oxygen Delivery 02/12/25 00:05 02/12/25 04:00 02/12/25 05:14 Temperature 97.3 F L Pulse Rate 48 L 50 L 53 L Respiratory Rate 12 Blood Pressure 132/63 Pulse Oximetry 96 Oxygen Delivery Intake/Output Intake/Output: Intake & Output 02/09/25 02/10/25 02/11/25 02/12/25 23:59 23:59 23:59 23:59 Intake Total 480 300 Balance 480 300 Meds/Results Medications: Active Medications Generic Name Dose Route Start Last Admin Trade Name Freq PRN Reason Stop Dose Admin Acetaminophen 650 mg 02/11/25 13:00 02/11/25 17:40 Acetaminophen 325 Mg Tablet PO 650 mg Q4H PRN Administration Mild Pain (1-3) or Fever Aspirin 81 mg 02/12/25 09:00 Aspirin 81 Mg Enteric Tablet PO DAILY [facility] Clopidogrel Bisulfate 75 mg 02/12/25 09:00 Clopidogrel Bisulfate 75 Mg Tablet PO DAILY [facility] Dextrose 12.5 gm 02/11/25 14:53 Dextrose 50% 25 Gm/50 Ml Syringe IV PUSH PRN PRN Hypoglycemia Protocol Glucagon 1 mg 02/11/25 14:53 Glucagon For Inj 1 Mg Vial IM PRN PRN Hypoglycemia Protocol Glucose 15 gm 02/11/25 14:53 Glucose Oral Gel 15 Gm Of Glucse In 37.5 Gm Tube PO PRN PRN Hypoglycemia Protocol Dextrose 1,000 mls @ 100 mls/hr 02/11/25 14:53 Dextrose 5% 1,000 Ml IVPB PRN PRN Hypoglycemia Protocol Insulin Aspart 3 - 6 units 02/11/25 17:00 02/11/25 17:39 Insulin Aspart (*Bkc) 100 Units/Ml SUB-Q 5 units TIDWM GERONIMO Administration Protocol Lansoprazole 30 mg 02/12/25 09:00 Lansoprazole Oral Susp 30 Mg/10 Ml Oral.Susp PO DAILY GERONIMO Levothyroxine Sodium 75 mcg 02/12/25 06:30 02/12/25 06:06 Levothyroxine Sodium 75 Mcg Tablet PO 75 mcg DAILY@0630 GERONIMO Administration Lisinopril 5 mg 02/12/25 09:00 Lisinopril 5 Mg Tablet PO DAILY [facility] Metoprolol Tartrate 50 mg 02/11/25 21:00 02/11/25 20:25 Metoprolol Tartrate 50 Mg Tab PO 50 mg Q12HR GERONIMO Administration Perflutren Lipid Microsphere 0 ml 02/11/25 23:29 Perflutren Lipid Microspheres 1.5 Ml Vial Diluted To 10 Ml Total Volume IV PUSH 02/14/25 23:29 ONCE PRN adequate visualization Protocol Pravastatin Sodium 80 mg 02/12/25 09:00 Pravastatin Sodium 20 Mg Tablet PO DAILY [facility] Radiology Results: ITS Impressions Head CT 02/11/25 10:08 IMPRESSION: 1. No intracranial bleed or large acute ischemic event. Chest X-Ray 02/11/25 10:16 IMPRESSION: 1. No focal acute process. Head/Neck CTA 02/11/25 10:59 IMPRESSION: 1. No critical stenosis or occlusion. 2. Enlarged main pulmonary artery which could be associated with pulmonary arterial hypertension. 3. Incidental note of bovine aortic arch. Labs Labs: Laboratory Results - last 24 hr 02/11/25 02/11/25 02/11/25 09:41 10:43 15:33 WBC 6.3 RBC 4.45 Hgb 14.0 Hct 41.9 MCV 94.2 MCH 31.5 MCHC 33.4 RDW 13.3 Plt Count 192 MPV 11.6 H Immature Gran % (Auto) 0.3 Neut % (Auto) 57.3 Lymph % (Auto) 22.7 [place] % (Auto) 15.5 H Eos % (Auto) 3.7 Baso % (Auto) 0.5 Lymph # (Auto) 1.42 [place] # (Auto) 1.0 H Eos # (Auto) 0.2 Baso # (Auto) 0.0 Abs Immat Gran (auto) 0.02 Absolute Neuts (auto) 3.6 Absolute Nucleated RBC 0.000 Nucleated RBC % 0.0 PT 12.5 INR 0.9 APTT 24.3 Sodium 134 L Potassium 4.3 Chloride 100 Carbon Dioxide 27 Anion Gap 7 BUN 19 H Creatinine 1.06 H Estim Creat Clear Calc 34 Estimated GFR 50 L Glucose 271 H POC Capillary Glucose 259 H 243 H Hemoglobin A1c Calcium 9.3 Total Bilirubin 0.8 AST 33 ALT 21 Alkaline Phosphatase 55 Troponin I < 0.012 Total Protein 6.9 Albumin 4.0 Triglycerides Cholesterol LDL Cholesterol Direct HDL Direct 02/11/25 02/11/25 02/12/25 17:29 20:07 04:35 WBC 5.3 RBC 4.31 Hgb 13.2 Hct 40.0 MCV 92.8 MCH 30.6 MCHC 33.0 RDW 13.2 Plt Count 173 MPV 11.7 H Immature Gran % (Auto) 0.4 Neut % (Auto) 53.5 Lymph % (Auto) 25.1 [place] % (Auto) 15.7 H Eos % (Auto) 4.7 H Baso % (Auto) 0.6 Lymph # (Auto) 1.33 [place] # (Auto) 0.8 H Eos # (Auto) 0.3 Baso # (Auto) 0.0 Abs Immat Gran (auto) 0.02 Absolute Neuts (auto) 2.8 Absolute Nucleated RBC 0.000 Nucleated RBC % 0.0 PT INR APTT Sodium 133 L Potassium 4.3 Chloride 100 Carbon Dioxide 29 Anion Gap 4 BUN 16 Creatinine 1.11 H Estim Creat Clear Calc 33 Estimated GFR 48 L Glucose 270 H POC Capillary Glucose 321 H 346 H Hemoglobin A1c 11.7 H Calcium 9.0 Total Bilirubin AST ALT Alkaline Phosphatase Troponin I Total Protein Albumin Triglycerides 138 Cholesterol 124 LDL Cholesterol Direct 59 HDL Direct 45 Quality VTE Prophylaxis VTE prophylaxis: mechanical ordered
--- NOTE | 2025-02-12 07:37 | ECG_ITS ---
Test Date: 2025-02-12 10:40:20 Measurements Intervals Jones Rate: 55 P: 13 NM: 149 QRS: 8 QRSD: 90 T: 45 QT: 461 QTc: 442 Interpretive Statements SINUS BRADYCARDIA OTHERWISE NORMAL ECG Compared to ECG 02/11/2025 10:38:28 T-wave abnormality no longer present Electronically Signed On 02-12-2025 15:53:00 TRANSITION MGR RN by aYnnick Johnson M.D.
[2025-02-12] MEDS: INSULIN ASPART (*BKC) 100 UNITS/ML SUB-Q ×3 (08:35→17:38)
[2025-02-12] MEDS: ASPIRIN 81 MG ENTERIC TABLET PO (08:36)
[2025-02-12] MEDS: CLOPIDOGREL BISULFATE 75 MG TABLET PO (08:36)
[2025-02-12] MEDS: PANTOPRAZOLE 40 MG TABLET PO (08:36)
[2025-02-12] MEDS: METOPROLOL TARTRATE 50 MG TAB PO ×2 (08:37→21:43)
[2025-02-12] MEDS: PRAVASTATIN SODIUM 20 MG TABLET 80 MG PO (08:40)
[2025-02-12] MEDS: ENOXAPARIN 40 MG/0.4 ML SYRINGE SUB-Q (08:40)
[2025-02-12 09:02] LABS: Thyroid Stimulating Hormone Reflex 13.400 uIU/mL (0.465-4.68)
[2025-02-12 10:43] LABS: Free T4 Free Thyroxine Reflex 1.16 ng/dL (0.78-2.19)
[2025-02-12 13:15] LABS: Total Triiodothyronine (T3) 0.80 NG/ML (0.82-1.58)
--- NOTE | 2025-02-12 14:54 | PC.NURSE ---
On 02/12/25, the student, [Renetta Hood], provided care and completed [facility] documentation on this patient. I have reviewed the student's documentation and agree with the findings.
[2025-02-12] MEDS: INSULIN GLARGINE (*BKC) 100 UNITS/ML 26 UNITS SUB-Q (21:44)
[2025-02-13] VITALS (7 sets, daily range): BP systolic 131–151; BP diastolic 59–63; PULSE 48–65; RESP 14–16; TEMP 36.2–36.6; O2SAT 96
[2025-02-13 05:30] LABS: Hematocrit 41.9 % (37.0-47.0); Hemoglobin 13.7 g/dL (12.0-15.0); Immature Granulocyte Percent A 0.4 % (0-0.5); Lymphocytes Absolute Auto 1.40 K/mm3 (0.9-3.2); Mean Corpuscular HGB Conc 32.7 g/dl (32-36); Mean Corpuscular Hemoglobin 30.6 pg (26-34); Mean Corpuscular Volume 93.5 fl (80-100); Nucleated Red Blood Cells Absolute Auto 0.000 K/mm3 (0.0-0.012); Nucleated Red Blood Cells Perc 0.0 % (0.0-0.2); Platelet Count Result 178 k/mm3 (150-375); Red Blood Count 4.48 M/mm3 (4.2-5.4); White Blood Count 4.7 K/mm3 (4.5-10.0)
[2025-02-13 05:42] LABS: Alanine Aminotransferase 16 U/L (6-35); Albumin Level 3.7 g/dL (3.5-5.1); Alkaline Phosphatase 52 U/L (38-126); Anion Gap 5 mmol/L (4-12); Aspartate Amino Transferase 26 U/L (14-36); Bilirubin,Total 0.9 mg/dL (0.2-1.3); Blood Urea Nitrogen 14 mg/dL (7-17); Calcium 9.2 mg/dL (8.4-10.2); Carbon Dioxide 30 mmol/L (22-30); Chloride 100 mmol/L (98-107); Estimated CRCL calculation 32 ml/min; Estimated Glomerular Filt Rate 47; Glucose 221 mg/dL (65-110); Potassium 3.8 mmol/L (3.4-5.0); Sodium 135 mmol/L (137-145); Total Protein 6.5 g/dL (6.3-8.2)
[2025-02-13] MEDS: LEVOTHYROXINE SODIUM 75 MCG TABLET PO (05:54)
[2025-02-13] MEDS: PANTOPRAZOLE 40 MG TABLET PO (08:36)
[2025-02-13] MEDS: METOPROLOL TARTRATE 50 MG TAB PO (08:36)
[2025-02-13] MEDS: ASPIRIN 81 MG ENTERIC TABLET PO (08:36)
[2025-02-13] MEDS: ENOXAPARIN 40 MG/0.4 ML SYRINGE SUB-Q (08:36)
[2025-02-13] MEDS: PRAVASTATIN SODIUM 20 MG TABLET 80 MG PO (08:36)
[2025-02-13] MEDS: INSULIN ASPART (*BKC) 100 UNITS/ML SUB-Q ×2 (08:37→12:15)
--- NOTE | 2025-02-13 09:42 | WPDNEURCNPN ---
Consult date: 02/13/25 HPI: Coco Diaz is a 79 year old femaleAdmitted to the hospital through the emergency room with complaints of difficulties in talking to her as of the words were not coming out without history of any associated tingling numbness or focal weakness of 1 side or other side up without history of associated headache or dizziness. Patient does carry the diagnosis of 1. Diabetes mellitus 2. Hypertension 3. Hypothyroidism and she has been taking 1 baby aspirin every day in addition to multiple other medication as listed particularly 1. Farxiga 2. Trulicity 3. Glimepiride 4. Levothyroxine 5. Lisinopril 6. Metformin 7. Metoprolol and 8. Pravastatin. She is reportedly allergic to iodine and sulfa. on initial eval in the emergency room her exam was nonfocal. Her vital signs were normal except blood pressure 162/59. CBC was normal, BMP was sodium 134 and blood sugar of 271 mast scan was normal except capillary glucose of 259. CT scan of the head was negative for any acute changes or bleed, chest x-ray was negative, head and neck CTA documented no critical stenosis or occlusion no aneurysm but there was mention about enlarged main pulmonary artery, an EKG was without atrial fibrillation with sinus bradycardia. Review of Systems Review of Systems: All systems reviewed & are unremarkable except as noted in HPI and below PMFSH Past Medical History Medical History Hypertension Hypothyroidism Dyslipidemia Diabetes mellitus Surgical History Surgical History History of esophagogastroduodenoscopy (EGD) History of tonsillectomy History of hysterectomy History of cholecystectomy History of colon resection Social History Social History Smoking status: Never smoker Second hand tobacco smoke exposure: No Alcohol intake: never Substance use: never Substance use type: does not use Lack of Transportation: No Lack of Food: Never True Current Housing: I Have Housing Concerned About Future Housing: No Difficulty Paying Gas/Electric Bills: No Difficulty Paying for Meds: No Currently Unemployed: No Education: Don't Know Difficulty w/ Childcare or Family Care: No Gender identity (if verbalized by the patient): Female Spiritual care concerns: No Meds Home Medications and Allergies Home Medications ?Medication ?Instructions ?Recorded ?Confirmed ?Type cyanocobalamin (vitamin B-12) 1,000 mcg subcut MONTHLY 12/09/21 02/11/25 History 1,000 mcg/mL injection solution dapagliflozin propanediol 10 mg 10 mg PO DAILY 12/09/21 02/11/25 History tablet (Farxiga) levothyroxine 75 mcg tablet 75 mcg PO DAILY 12/09/21 02/11/25 History lisinopril 5 mg tablet 5 mg PO DAILY 12/09/21 02/11/25 History metformin 500 mg tablet,extended 500 mg PO DAILY 12/09/21 02/11/25 History release 24 hr pravastatin 80 mg tablet 80 mg PO DAILY 12/09/21 02/11/25 History aspirin 81 mg tablet,delayed 81 mg PO DAILY 02/11/25 02/11/25 History release (Adult Aspirin Regimen) insulin glargine U-300 conc 300 40 unit subcut QHS 02/11/25 02/11/25 History unit/mL (3 mL) subcutaneous pen (Toujeo Max U-300 SoloStar) lansoprazole 30 mg capsule,delayed 30 mg PO DAILY 02/11/25 02/11/25 History release metoprolol tartrate 50 mg tablet 50 mg PO BID 02/11/25 02/11/25 History Allergies Allergy/AdvReac Type Severity Reaction Status Date / Time iodine Allergy Severe Swelling Verified 02/11/25 17:02 of Lip/Tongue/Throat Sulfa (Sulfonamide Allergy Unknown Verified 02/11/25 17:02 Antibiotics) Vital Signs Vital Signs - 24 hr 02/12/25 10:05 02/12/25 10:06 02/12/25 12:00 Temperature Pulse Rate 54 L Respiratory Rate Blood Pressure Pulse Oximetry Oxygen Delivery Room Air Room Air 02/12/25 14:00 02/12/25 16:00 02/12/25 20:00 Temperature 36.6 C Pulse Rate 57 L 51 L 60 Respiratory Rate 16 16 Blood Pressure 128/56 L Pulse Oximetry 94 95 Oxygen Delivery Room Air 02/12/25 20:00 02/12/25 21:03 02/12/25 21:43 Temperature 36.6 C Pulse Rate 54 L 60 60 Respiratory Rate 16 Blood Pressure 129/66 Pulse Oximetry 95 Oxygen Delivery 02/13/25 00:00 02/13/25 04:00 02/13/25 06:00 Temperature 36.6 C Pulse Rate 55 L 48 L 59 L Respiratory Rate 14 Blood Pressure 141/63 H Pulse Oximetry 96 Oxygen Delivery 02/13/25 08:35 02/13/25 08:36 Temperature Pulse Rate 52 L 52 L Respiratory Rate Blood Pressure 151/61 H Pulse Oximetry Oxygen Delivery Results Labs 02/13/25 05:05 02/13/25 05:05 Labs: Short CBC 02/13/25 Range/Units 05:05 WBC 4.7 (4.5-10.0) K/mm3 Hgb 13.7 (12.0-15.0) g/dL Hct 41.9 (37.0-47.0) % Plt Count 178 (150-375) k/mm3 [facility] 02/13/25 05:05 Sodium 135 L Potassium 3.8 Chloride 100 Carbon Dioxide 30 BUN 14 Creatinine 1.13 H Glucose 221 H Calcium 9.2 Liver Function 02/13/25 Range/Units 05:05 Total Bilirubin 0.9 (0.2-1.3) mg/dL AST 26 (14-36) U/L ALT 16 (6-35) U/L Alkaline Phosphatase 52 (38-126) U/L Albumin 3.7 (3.5-5.1) g/dL
--- NOTE | 2025-02-13 13:55 | P.DS_ITS ---
DS: Admitting Diagnosis Discharge Date 02/13/2025 Admitting Diagnosis CVA, diabetes, dyslipidemia, hypertension, hypothyroidism DS: Discharge Diagnosis Discharge Diagnosis (1) Acute cerebrovascular accident (CVA): Code(s): I63.9 - Cerebral infarction, unspecified Status: Acute Assessment and Plan: With thrombus vs micro bleeding at site of infarct per MRI results (2) Diabetes mellitus: Qualifiers: Diabetes mellitus type: type 2 Diabetes mellitus [facility] insulin use: with terminal operations supervisor use Diabetes mellitus complication status: without complication Qualified Code(s): E11.9 - Type 2 diabetes mellitus without complications; Z79.4 - penitentiary (current) use of insulin Code(s): E11.9 - Type 2 diabetes mellitus without complications Status: Chronic (3) CKD (chronic kidney disease): Code(s): N18.9 - Chronic kidney disease, unspecified Status: Acute (4) Hypothyroidism: Qualifiers: Hypothyroidism type: unspecified Qualified Code(s): E03.9 - Hypothyroidism, unspecified Code(s): E03.9 - Hypothyroidism, unspecified Status: Acute (5) Hypertension: Qualifiers: Hypertension type: primary hypertension Qualified Code(s): I10 - Essential (primary) hypertension Code(s): I10 - Essential (primary) hypertension Status: Chronic (6) Dyslipidemia: Code(s): E78.5 - Hyperlipidemia, unspecified Status: Chronic (7) Bradycardia: Code(s): R00.1 - Bradycardia, unspecified Status: Acute DS: Summary Hospital Course Reason for hospitalization: Stroke symptoms Hospital Course: This is a 79-year-old female patient who was admitted to the hospital due to difficulty speaking after she awakened on 02/12/2020. Patient was having trouble coming up with words that she wanted to say having trouble pronouncing some words especially those with an S sound. At 1st her thought that it was a problem with his hearing aids later she was still having trouble speaking so he to the emergency department. Initial CT scan noncontrast was negative for intracranial bleeding. CTA was negative for large vessel occlusion. Patient was admitted for neurology evaluation and MRI. Yesterday patient saw Neurology who was questioning focal seizure verses TIA. Later yesterday afternoon MRI results showed small area of acute infarct in the left temporal lobe with concern for a small thrombus versus micro bleeding in the area infarct. Antiplatelet therapy was initially given but then held until neurology re-evaluated plan of care after MRI results. Today after discussion with neurologist it was decided patient would only receive 81 mg of aspirin daily and not receive 3 weeks treatment with Plavix. Patient reports that her symptoms have mostly resolved though she does occasionally find trouble finding some words. Her speech was clear I evaluated her. She walks with a cane states that she had motor or sensory changes with her stroke only speech changes. Laboratory workup showed that her diabetes is not well controlled. She had a hemoglobin A1c 11. Echocardiogram no signs PFO. EKG telemetry patient sustained sinus bradycardia in 50s, no episodes atrial fibrillation captured. Speech therapy saw patient recommended 3-5 days/week for 2 weeks of outpatient speech therapy. Physical therapy evaluated patient and recommended 3-5 days per week for 2 weeks outpatient physical therapy. Occupational therapy evaluated patient and recommended 2-3 days per week outpatient occupational therapy. Case management to provide patient with a list of therapy providers she can follow-up with. Outpatient orders for evaluation and treatment of all 3 domains, speech therapy physical therapy and occupational therapy were written. Time Spent with Patient Time attestation: Total time spent providing and/or coordinating discharge services: 65 minutes Time spent: Greater than 30 minutes Specific discharge activities: Multiple calls with case management and Neurology Exam Narrative: GENERAL: Well-appearing, well-nourished, and in no acute distress. HEAD: Normocephalic, atraumatic. ENT:? Mucous membranes moist. CHEST: Clear to auscultation.? No respiratory distress. HEART: Regular rate and rhythm. ? Normal peripheral pulses. ABDOMEN: Soft, nontender, nondistended. EXTREMITIES: Normal range of motion. No peripheral edema. SKIN: Warm dry normal color NEURO: Alert and oriented x3. Moves all extremities well no focal motor or sensory deficits noted. Occasional word-finding issue still present. No significant slurred speech. PSYCH: Normal mood and affect DS: Data Data Completed and Pending Labs on day of discharge: Labs from last 24 hours 02/13/25 02/13/25 02/13/25 11:42 07:35 05:05 WBC 4.7 RBC 4.48 Hgb 13.7 Hct 41.9 MCV 93.5 MCH 30.6 MCHC 32.7 RDW 13.3 Plt Count 178 MPV 11.5 H Immature Gran % (Auto) 0.4 Neut % (Auto) 44.8 L Lymph % (Auto) 30.0 [place] % (Auto) 17.1 H Eos % (Auto) 7.3 H Baso % (Auto) 0.4 Lymph # (Auto) 1.40 [place] # (Auto) 0.8 H Eos # (Auto) 0.3 Baso # (Auto) 0.0 Abs Immat Gran (auto) 0.02 Absolute Neuts (auto) 2.1 Absolute Nucleated RBC 0.000 Nucleated RBC % 0.0 Sodium 135 L Potassium 3.8 Chloride 100 Carbon Dioxide 30 Anion Gap 5 BUN 14 Creatinine 1.13 H Estim Creat Clear Calc 32 Estimated GFR 47 L Glucose 221 H POC Capillary Glucose 251 H 229 H Calcium 9.2 Total Bilirubin 0.9 AST 26 ALT 16 Alkaline Phosphatase 52 Total Protein 6.5 Albumin 3.7 02/13/25 02/12/25 02/12/25 00:05 21:09 16:42 WBC RBC Hgb Hct MCV MCH MCHC RDW Plt Count MPV Immature Gran % (Auto) Neut % (Auto) Lymph % (Auto) [place] % (Auto) Eos % (Auto) Baso % (Auto) Lymph # (Auto) [place] # (Auto) Eos # (Auto) Baso # (Auto) Abs Immat Gran (auto) Absolute Neuts (auto) Absolute Nucleated RBC Nucleated RBC % Sodium Potassium Chloride Carbon Dioxide Anion Gap BUN Creatinine Estim Creat Clear Calc Estimated GFR Glucose POC Capillary Glucose 288 H 320 H 274 H Calcium Total Bilirubin AST ALT Alkaline Phosphatase Total Protein Albumin Discharge Plan Discharge Consulting providers: Nadia Beckwith; Oswald Vences Discharging Clinician: Wilder Seth Anticipated Discharge Date/Time: 02/13/25 13:55 Patient Disposition: Home Activity: as tolerated Diet: diabetic Discharge Instructions: Take aspirin 81 mg daily, no Plavix Please make a follow up appointment with your Endocrine and Primary Care Make follow up with Neurologist Dr. Meyer Our inpatient speech therapy provider recommended speech therapy 3-5 days/wk for 2 wks then reevaluate. Our inpatient Physical Therapy provider recommended PT once daily 2-3 days/wk for 2 wks then reevaluate. Our inpatient Occupational Therapy provider recommended OT once daily 2-3 days/wk for 2 wks then reevaluate. Patient Instructions: Antibiotic Form, Diabetes and Nutrition (DC) Patient Language: Malagasy Stand Alone Forms: General Discharge Information Follow-up/Referrals: [facility] [Other] - Call for Appointment Chepe,Morro Hadley MD [Primary Care Provider] - Call for Appointment Winston Meyer MD [Physician, Neurology] - Call for Appointment Discharge Medications: Continued levothyroxine 75 mcg tablet 75 mcg PO DAILY pravastatin 80 mg tablet 80 mg PO DAILY cyanocobalamin (vitamin B-12) 1,000 mcg/mL solution 1,000 mcg subcut MONTHLY Patient Comments: first of the month lisinopril 5 mg tablet 5 mg PO DAILY metformin 500 mg tablet extended release 24 hr 500 mg PO DAILY dapagliflozin propanediol [Farxiga] 10 mg tablet 10 mg PO DAILY lansoprazole 30 mg capsule,delayed release(DR/EC) 30 mg PO DAILY metoprolol tartrate 50 mg tablet 50 mg PO BID aspirin [Adult Aspirin Regimen] 81 mg tablet,delayed release (DR/EC) 81 mg PO DAILY insulin glargine U-300 conc [Toujeo Max U-300 SoloStar] 300 unit/mL (3 mL) insulin pen 40 unit SUBCUT QHS Other Ambulatory Orders: OT Outpatient Eval and Treat (ONCE) Timeframe: 20250220 Location: Determined by Patient Ordered By: Wilder Seth PT Outpatient Eval and Treat (ONCE) Timeframe: 20250220 Location: Determined by Patient Ordered By: Wilder Seth ST / Speech Therapy Outpatient Eval and Treat (ONCE) Timeframe: 20250220 Location: Determined by Patient Ordered By: Wilder Seth Date of admission: 02/12/25 08:04 Primary Care Provider: ChepeMorro Admitting Provider: Mikael Rodrigez Attending physician on admission: Mikael Rodrigez Condition: Stable Quality VTE Prophylaxis VTE prophylaxis: mechanical ordered and pharmacologic ordered Pharmacological Therapy Was IV thrombolytic therapy given?: No Contraindications to IV thrombolytic therapy: medical contraindication (Woke up with symptoms) Reason anticoag or antiplatelet not ordered by end of day 2: medical contraindication (aspirin ordered, Plavix held due to concern for microbleeding at infarct site) Reason no anticoagulant or antiplatelet at DC: medical contraindication (aspirin ordered) No afib/flutter noted, patient was prescribed statin and aspirin on discharge Hospitalist MIPS Heart Failure (Exclusion) Patient has history of Heart Transplant or Left Ventricular Assistive Device?: No IF YES, STOP HERE Heart Failure (Qualifier) Patient has current or prior documentation of LVEF less than or equal to 40%, or mod/servere depressed LVSF?: No IF NO, STOP HERE
[2025-02-14 11:00] LABS: Estimated CRCL calculation 31 ml/min; Estimated Glomerular Filt Rate 43
== END 2025-02-13 15:32 | disposition home or self-care (01) | DRG 64 ==
LOC: ANHED 13:14 → ANH3MEDSUR 14:30 → ANH2MED 16:35
PROVIDERS: Emergency Medicine; Nurse Practitioner Adult Health; Physician Assistant; Admitting Provider Internal Medicine; Emergency Provider Emergency Medicine; PCP Internal Medicine; Visit Provider Nurse Practitioner
DX: I63.39 Cerebral infarction due to thrombosis of other cerebral artery (principal); I61.8 Other nontraumatic intracerebral hemorrhage; Q25.49 Other congenital malformations of aorta; R47.01 Aphasia; E03.9 Hypothyroidism, unspecified; E78.5 Hyperlipidemia, unspecified; I27.21 Secondary pulmonary arterial hypertension; N18.9 Chronic kidney disease, unspecified; I12.9 Hypertensive chronic kidney disease with stage 1 through stage 4 chronic kidney disease, or unspecified chronic kidney disease; E11.22 Type 2 diabetes mellitus with diabetic chronic kidney disease; R29.701 NIHSS score 1; Z79.84 Long term (current) use of oral hypoglycemic drugs; Z90.49 Acquired absence of other specified parts of digestive tract; Z79.82 Long term (current) use of aspirin; Z79.85 Long-term (current) use of injectable non-insulin antidiabetic drugs
CPT/HCPCS: 36415; 70450; 70496; 70498; 70553; 71045; 80048; 80053; 80061; 82565; 82948; 83036; 84439; 84443; 84480; 84484; 85025; 85610; 85730; 92507; 92523; 93005; 93306; 96375; 97110; 97116; 97161; 97166; 99285; A9270; A9577; G0378; J1650; J1815; Q9967